=== PATIENT | female | born 1985 | race Caucasian/White ===

== ENCOUNTER 2019-08-02 16:01 | Emergency (ER) | payer OTHER, MEDICAID, SELFPAY | END 2019-08-02 17:03 | disposition left against medical advice (07) | LOC: EXPBETH 16:28 | PROVIDERS: Emergency Provider Registered Nurse | DX: Z53.21 Procedure and treatment not carried out due to patient leaving prior to being seen by health care provider (principal) | CPT/HCPCS: 99199 ==

== ENCOUNTER 2020-02-01 11:24 | Outpatient (CLI) | payer OTHER, MEDICAID, SELFPAY ==
--- NOTE | ~2020-02-01 | US_ITS ---
EXAMINATION: US OB <= 14 weeks fetus DATE: 02/01/2020 12:05 INDICATION: Threatened . TECHNIQUE: Real-time transabdominal pelvic ultrasound was performed. COMPARISON: None. FINDINGS: The uterus measures 9.6 x 8.9 x 9.4 cm. There is an intrauterine gestational sac. A yolk sac is ident ified. The crown rump length measures 3.1 cm, which correlates with an estimated gestational a ge of 10 weeks and 0 day(s) (+/-) 5 day(s). heart motion is identified measuring 171 beats per minute (bpm) by M-mode Doppler. There is a small subchorionic hematoma measuring 2.1 x 0.9 x 1.9 cm. The right ovary measures 2.5 x 2.1 x 2.2 cm. The left ovary measures 3.3 x 1.3 x 2.2 cm. There is no free fluid in the pelvis. IMPRESSION: 1. Single living intrauterine gestation with estimated date of delivery of 08/29/2020. 2. Small subchorionic hematoma. Reviewed, dictated and finalized at location A. IMPRESSION: 1. Single living intrauterine gestation with estimated date of delivery of 08/02. 2. Small subchorionic hematoma.
[2020-02-03 13:05] LABS: Progesterone 23.3 ng/mL (***)
== END 2020-02-01 11:25 | disposition home or self-care (01) ==
PROVIDERS: Visit Provider Obstetrics & Gynecology
DX: O46.90 Antepartum hemorrhage, unspecified, unspecified trimester (principal); Z3A.00 Weeks of gestation of pregnancy not specified
CPT/HCPCS: 36415; 76801; 84144; 84702; 86900; 86901

== ENCOUNTER 2020-02-07 18:18 | Emergency (ER) | payer OTHER, MEDICAID, SELFPAY ==
[2020-02-07 18:21] VITALS: BP 124/99; PULSE 98; RESP 18; TEMP 36.6; O2SAT 99
[2020-02-07 18:36] LABS: Basophils Percent Auto 0.3 % (0.2-1.2); Eosinophils Absolute Auto 0.2 K/mm3 (0-0.3); Eosinophils Percent Auto 1.5 % (0-4.4); Hematocrit 37.2 % (37.0-47.0); Hemoglobin 13.1 g/dL (12.0-15.0); Immature Granulocyte Absolute 0.03 K/mm3 (0.00-0.031); Immature Granulocyte Percent A 0.3 % (0-0.5); Lymphocytes Absolute Auto 3.17 K/mm3 (0.9-3.2); Lymphocytes Percent Auto 27.4 % (18.3-44.2); Mean Corpuscular HGB Conc 35.2 g/dl (32-36); Mean Corpuscular Hemoglobin 29.2 pg (26-34); Mean Corpuscular Volume 82.9 fl (80-100); Mean Platelet Volume 10.4 fl (7.4-10.4); Monocytes Absolute Auto 0.6 K/mm3 (0.1-0.6); Monocytes Percent Auto 5.4 % (2.6-8.5); Neutrophils Absolute Auto 7.5 K/mm3 (1.3-6.7); Neutrophils Percent Auto 65.1 % (45.5-73.1); Platelet Count Result 279 k/mm3 (150-375); Red Blood Count 4.49 M/mm3 (4.2-5.4); Red Cell Distribution Width 12.6 % (11.5-14.5); White Blood Count 11.6 K/mm3 (4.5-10.0)
[2020-02-07 18:49] LABS: Alanine Aminotransferase 22 U/L (4-35); Albumin Level 4.4 g/dL (3.5-5.1); Alkaline Phosphatase 41 U/L (38-126); Anion Gap 9 mmol/L (8-16); Aspartate Amino Transferase 23 U/L (14-36); Bilirubin,Total 0.4 mg/dL (0.2-1.3); Blood Urea Nitrogen 10 mg/dL (7-17); Calcium 9.9 mg/dL (8.4-10.2); Carbon Dioxide 23 mmol/L (22-30); Chloride 102 mmol/L (98-107); Estimated CRCL calculation 144 ml/min; Estimated Glomerular Filt Rate > 60; Glucose 102 mg/dL (65-105); Lipase 69 U/L (23-300); Potassium 3.9 mmol/L (3.4-5.0); Sodium 134 mmol/L (137-145)
[2020-02-07 19:02] LABS: Add Urine Microscopic? YES; Appearance Urine Clear (Clear); Bacteria Urine Trace /hpf; Bilirubin Urine Negative (Negative); Blood Urine Negative (Negative); Color Urine Yellow (Yellow); Glucose Urine UA Negative (Negative); Ketones Urine Negative (Negative); Leukocyte Esterase Ur Trace LEU/UL (Negative); Mucus Urine Rare /lpf; Nitrate Urine Negative (Negative); Protein Urine Negative (Negative); RBC Urine 0-2 /hpf (0-2); Specific Grav Ur 1.019 (1.001-1.035); Squamous Epithelial Cell Urine Occasional /hpf (Few); Urobilinogen Urine Negative mg/dL (<2.0); WBC Urine 0-3 /hpf
--- NOTE | 2020-02-07 19:41 | ED.ABDPAIN ---
HPI - Abdominal Pain General Chief Complaint: Abdominal Pain Stated Complaint: 11 weeks /cramping Time Seen by Provider: 02/07/20 19:23 History of Present Illness HPI narrative: Patient is a 34-year-old female who presents ER with lower abdominal cramping. Patient is 12 weeks . She has a positive IUP with small subchorionic hematoma diagnosed on 02/01/2020. Patient had increased cramping today associated with vomiting so her OB told her to come be evaluated. She is having no vaginal bleeding or dysuria or urinary frequency. She does not feel nauseous outside when she has a cramping pain. Related Data Home Medications Medication Instructions Recorded Confirmed ondansetron HCl 4 mg tablet 4 mg PO Q8H 02/05/20 02/07/20 PNV cmb#95-ferrous fumarate-FA 1 tablet PO 02/07/20 [] Allergies Allergy/AdvReac Type Severity Reaction Status Date / Time No Known Allergies Allergy Verified 02/07/20 19:19 Review of Systems Review of Systems: All systems reviewed & are unremarkable except as noted in HPI and below Gastrointestinal: Gastrointestinal: Reports abdominal pain, Reports nausea and Reports vomiting Genitourinary: Genitourinary: Denies abnormal vaginal bleeding, Denies nocturia, Denies dysuria and Denies vaginal discharge PMFSH Social History Social History Smoking status: Never smoker Alcohol intake: never Substance use: never Gender identity (if verbalized by the patient): Female Exam Narrative: Exam Narrative: GENERAL: Well-appearing, well-nourished, and in no acute distress. HEAD: Normocephalic, atraumatic. CHEST: Clear to auscultation. No respiratory distress. HEART: Regular rate and rhythm. Normal peripheral pulses. ABDOMEN: Soft, nontender, nondistended. EXTREMITIES: Normal range of motion. No edema. NEURO: Alert and oriented x3. PSYCH: Normal mood and affect. Course Course Emergency Course: Bedside ultrasound shows IUP with positive movement and positive heart tones. Patient reassured by this. Gave education bleeding precautions. Encouraged hydration at home. No evidence of UTI. Patient reports she has follow-up with her OB in 2 to 3 days. Vital Signs Vital signs: Vital Signs Temperature 98 F 02/07/20 18:21 Pulse Rate 98 02/07/20 18:21 Respiratory Rate 18 02/07/20 18:21 Blood Pressure 124/99 H 02/07/20 18:21 Pulse Oximetry 99 02/07/20 18:21 Temperature 98 F 02/07/20 18:21 Pulse Rate 98 02/07/20 18:21 Respiratory Rate 18 02/07/20 18:21 Blood Pressure 124/99 H 02/07/20 18:21 Pulse Oximetry 99 02/07/20 18:21 MDM - Abdominal Pain Lab Data Result diagrams: 02/07/20 18:26 02/07/20 18:26 Labs: Lab Results 02/07/20 02/07/20 02/07/20 Range/Units 18:26 18:26 18:52 WBC 11.6 H (4.5-10.0) K/mm3 RBC 4.49 (4.2-5.4) M/mm3 Hgb 13.1 (12.0-15.0) g/dL Hct 37.2 (37.0-47.0) % MCV 82.9 (80-100) fl MCH 29.2 (26-34) pg MCHC 35.2 (32-36) g/dl RDW 12.6 (11.5-14.5) % Plt Count 279 (150-375) k/mm3 MPV 10.4 (7.4-10.4) fl Immature Gran % (Auto) 0.3 (0-0.5) % Neut % (Auto) 65.1 (45.5-73.1) % Lymph % (Auto) 27.4 (18.3-44.2) % [place] % (Auto) 5.4 (2.6-8.5) % Eos % (Auto) 1.5 (0-4.4) % Baso % (Auto) 0.3 (0.2-1.2) % Lymph # (Auto) 3.17 (0.9-3.2) K/mm3 [place] # (Auto) 0.6 (0.1-0.6) K/mm3 Eos # (Auto) 0.2 (0-0.3) K/mm3 Baso # (Auto) 0.0 (0.0-0.1) K/mm3 Abs Immat Gran (auto) 0.03 (0.00-0.031) K/mm3 Absolute Neuts (auto) 7.5 H (1.3-6.7) K/mm3 Absolute Nucleated RBC 0.0 (0.0-0.012) K/mm3 Nucleated RBC % 0.0 (0.0-0.2) % Sodium 134 L (137-145) mmol/L Potassium 3.9 (3.4-5.0) mmol/L Chloride 102 (98-107) mmol/L Carbon Dioxide 23 (22-30) mmol/L Anion Gap 9 (8-16) mmol/L BUN 10 (7-17) mg/dL Creatinine 0.50
[2020-02-07 19:51] VITALS: BP 132/78; PULSE 70; RESP 18; O2SAT 99
== END 2020-02-07 20:08 | disposition home or self-care (01) ==
LOC: ANHED 19:57
PROVIDERS: Family Medicine; Emergency Provider Emergency Medicine; PCP Obstetrics & Gynecology
DX: O26.891 Other specified pregnancy related conditions, first trimester (principal); R10.30 Lower abdominal pain, unspecified; Z3A.12 12 weeks gestation of pregnancy
CPT/HCPCS: 36415; 80053; 81001; 81025; 83690; 85025; 99283

== ENCOUNTER 2020-02-26 12:52 | Outpatient (CLI) | payer OTHER, MEDICAID, SELFPAY ==
[2020-02-26 13:39] LABS: Basophils Percent Auto 0.2 % (0.2-1.2); Eosinophils Absolute Auto 0.1 K/mm3 (0-0.3); Eosinophils Percent Auto 1.4 % (0-4.4); Hematocrit 36.2 % (37.0-47.0); Hemoglobin 12.4 g/dL (12.0-15.0); Immature Granulocyte Absolute 0.02 K/mm3 (0.00-0.031); Immature Granulocyte Percent A 0.2 % (0-0.5); Lymphocytes Absolute Auto 2.44 K/mm3 (0.9-3.2); Lymphocytes Percent Auto 26.5 % (18.3-44.2); Mean Corpuscular HGB Conc 34.3 g/dl (32-36); Mean Corpuscular Hemoglobin 28.6 pg (26-34); Mean Corpuscular Volume 83.4 fl (80-100); Mean Platelet Volume 10.2 fl (7.4-10.4); Monocytes Absolute Auto 0.5 K/mm3 (0.1-0.6); Monocytes Percent Auto 5.1 % (2.6-8.5); Neutrophils Absolute Auto 6.1 K/mm3 (1.3-6.7); Neutrophils Percent Auto 66.6 % (45.5-73.1); Platelet Count Result 233 k/mm3 (150-375); Red Blood Count 4.34 M/mm3 (4.2-5.4); Red Cell Distribution Width 12.9 % (11.5-14.5); White Blood Count 9.2 K/mm3 (4.5-10.0)
[2020-02-26 14:31] LABS: HIV 1/2 Ab P24 Ag Result Negative (Negative)
[2020-02-26 14:49] LABS: Hepatitis C Virus Antibody Negative (Negative); Rubella IgG Antibody 5.6 IU/ML
[2020-02-29 11:44] LABS: Rapid Plasma Reagin Non-Reactive (NonReactive)
[2020-03-01 18:11] LABS: Hepatitis Be Antigen Nonreactive
== END 2020-02-26 12:53 | disposition home or self-care (01) ==
PROVIDERS: PCP Obstetrics & Gynecology; Visit Provider Obstetrics & Gynecology
DX: N91.2 Amenorrhea, unspecified (principal)
CPT/HCPCS: 36415; 85025; 86592; 86703; 86762; 86803; 86850; 86900; 86901; 87350; G0432

== ENCOUNTER 2020-03-25 15:18 | Outpatient (CLI) | payer OTHER, MEDICAID, SELFPAY ==
--- NOTE | ~2020-03-25 | US_ITS ---
EXAMINATION: US OB /maternal detail EXAM DATE: 03/25/2020 16:10 INDICATION: Z36.2 Encounter for other screening follow-up. 2nd trimester. TECHNIQUE: Pelvic obstetrical transabdominal sonogram was performed by a technologist. There are mu ltiple grayscale and Doppler images available for interpretation. Comparison is made to prior examina tion from 02/01/2020. FINDINGS: There is a single fetus identified in vertex presentation with a heart rate of 154 beats pe r minute. The placenta is located in the anterior position. There is no sonographic evidence of retr oplacental hemorrhage identified. Placental margin to internal cervical os distance is 3.6 cm. BIOMETRIC DATA: Biparietal diameter (BPD): 4.0cm ----------------> 18 weeks 2 days. Head circumference (HC): 15.0 cm ----------------> 18 weeks 0 days. Abdominal circumference (AC): 12.4 cm ----------> 18 weeks 0 days. Femur length (FL): 1.3 cm --------------------------> 14 weeks 0 days. These measurements are discordant, the FL/HC ratio is low at 9.0 with 5th -- 95th percentile range is 14.8-17.7. This is result of short femur length measurement obtained. HC/AC ratio is 1.21 (The 5th -- 95th percentile range is 1.07-1.29. Estimated weight is 151 g +/- 23 g. This is the less than 3rd percentile when the currently re ported clinical gestation age 18 weeks 1 day, clinical estimated date of delivery ([facility]) 08/25/2020 is used. estimated gestational age based on measurements from this exam is 17 weeks 1 day, wit h an estimated date of delivery ([facility]) 09/01. ANATOMIC SURVEY: The following anatomy is identified and is sonographically normal in appearance: Cerebral ventricles Cerebellum Cisterna magna CTL-spine Four-chamber heart Diaphragm Stomach Kidneys Bladder Three-vessel cord Cord insertion The nuchal fold was imaged but measurement not obtained. It appears well within normal thickness. IMPRESSION: 1. Single fetus in vertex presentation with heart rate 154 beats per minute. 2. Estimated weight of 151 grams, less than 3rd percentile using the currently reported clinic al gestation age of 18 weeks 1 day, [facility]) 08/26/2019. 3. Discordant low femur length measurement. 4. Normal anatomic survey. Reviewed, dictated and finalized at location A. IMPRESSION: 1. Single fetus in vertex presentation with heart rate 154 beats per minute. 2. Estimated weight of 151 grams, less than 3rd percentile using the cur rently reported clinical gestation age of 18 weeks 1 day, [facility]) 08/26/2019. 3. Discordant low femur length measurement. 4. Normal anatomic survey.
== END 2020-03-25 15:19 | disposition home or self-care (01) ==
PROVIDERS: Visit Provider Obstetrics & Gynecology
DX: Z36.2 Encounter for other antenatal screening follow-up (principal)
CPT/HCPCS: 76805

== ENCOUNTER 2020-03-31 13:50 | Observation (INO) | payer OTHER, MEDICAID, SELFPAY ==
--- NOTE | 2020-03-31 14:12 | OBADM ---
This patient, Angelina Mckeon, admitted to the OB room 115 for observation for dizziness. Patient/family oriented to hospital policies and general routines including ID bracelet, bed and alarms, visiting hours, pain management, procedures, bathroom and other care routines, personal items, smoking policy, room service/diet, and visiting hours. Patient/Family are encouraged to report perceived risks to care and to ask questions if they do not understand what they are told or what they should do.
[2020-03-31 14:13] VITALS: RESP 16; TEMP 36.6; BMI 27.9
--- NOTE | 2020-03-31 14:20 | PC.NURSE ---
Demonstrated to pt how to change positions if she should become dizzy again while sitting. Discussed having pt move to floor and lay on side or to have someone assist her to laying down rather than just getting up on her own and possibly passing out. Pt verbalizes understanding.
--- NOTE | 2020-03-31 14:48 | PC.NURSE ---
Dr. Redmond informed of pt's episode of dizziness around 1000 while sitting at work this morning. Pt denies any chest discomfort or increase in HR during episode. When pt arrived here, she states her dizziness was 95% gone. Pt states she did have 1 brief episode of dizziness while here that went away shortly after she turned on her side. FHT's 148 per doppler, P 89, BP's 100/62, 109/59, 105/58, and 107/58. Pt had breakfast at 0730 this morning and ate lunch on the way here. Pt has had 44 oz of water so far today. OK to discharge pt to home. Encourage pt to continue drinking as she has been. Encourage her to shift and change positions more frequently. Pt verbalizes understanding of these instructions.
--- NOTE | 2020-06-30 09:16 | PM.OBTRLD ---
OB - Triage/Final Diagnosis Visit Information Comments/Additional reasons for admission: I have assessed the risk for this patient, Angelina Mckeon, and determined that she would benefit from observation care. Final Diagnosis (1) False labor: Code(s): O47.9 - False labor, unspecified Status: Acute
== END 2020-03-31 14:55 ==
LOC: ANHOBOP 06-30 06:23 → ANHLDR 06-30 08:55
PROVIDERS: Admitting Provider Obstetrics & Gynecology; Visit Provider Obstetrics & Gynecology
DX: O47.02 False labor before 37 completed weeks of gestation, second trimester (principal); Z3A.19 19 weeks gestation of pregnancy
CPT/HCPCS: G0378; G0379

== ENCOUNTER 2020-05-12 19:30 | Observation (INO) | payer MEDICAID, SELFPAY ==
[2020-05-12 19:55] VITALS: BP 103/73; PULSE 84
--- NOTE | 2020-05-12 20:03 | OBADM ---
This patient, Angelina Mckeon, admitted to the OB room OB Post 117 for observation. Patient/family oriented to hospital policies and general routines including ID bracelet, bed and alarms, visiting hours, pain management, procedures, bathroom and other care routines, personal items, smoking policy, room service/diet, and visiting hours. Patient/Family are encouraged to report perceived risks to care and to ask questions if they do not understand what they are told or what they should do.
[2020-05-12 20:47] LABS: Add Urine Microscopic? YES; Appearance Urine Clear (Clear); Bacteria Urine Trace /hpf; Bilirubin Urine Negative (Negative); Blood Urine Negative (Negative); Color Urine Yellow (Yellow); Glucose Urine UA Negative (Negative); Ketones Urine Negative (Negative); Leukocyte Esterase Ur Negative LEU/UL (Negative); Mucus Urine Few /lpf; Nitrate Urine Negative (Negative); Protein Urine 1+ mg/dL (Negative); RBC Urine 0-2 /hpf (0-2); Specific Grav Ur 1.025 (1.001-1.035); Squamous Epithelial Cell Urine Occasional /hpf (Few); Urobilinogen Urine Negative mg/dL (<2.0); WBC Urine 0-3 /hpf
--- NOTE | 2020-06-13 09:44 | PM.OBTRLD ---
OB - Triage/Final Diagnosis Evaluation Laboratory results: Laboratory Tests 05/12/20 20:38 Urine Color Yellow Urine Appearance Clear Urine pH 6.0 Ur Specific [place] 1.025 Urine Protein 1+ H Urine Glucose (UA) Negative Urine Ketones Negative Ur Blood (Man) Negative Urine Nitrate Negative Urine Bilirubin Negative Urine Urobilinogen Negative Leukocyte Esterase Rfl Negative Urine RBC 0-2 Urine WBC 0-3 Ur Squamous Epith Cells Occasional Urine Bacteria Trace Urine Mucus Few H Final Diagnosis (1) False labor: Code(s): O47.9 - False labor, unspecified Status: Acute
--- NOTE | 2020-08-10 11:50 | PM.OBTRLD ---
OB - Triage/Final Diagnosis Visit Information Comments/Additional reasons for admission: I have assessed the risk for this patient, Angelina Mckeon, and determined that she would benefit from observation care. Evaluation Laboratory results: Laboratory Tests 05/12/20 20:38 Urine Color Yellow Urine Appearance Clear Urine pH 6.0 Ur Specific [place] 1.025 Urine Protein 1+ H Urine Glucose (UA) Negative Urine Ketones Negative Ur Blood (Man) Negative Urine Nitrate Negative Urine Bilirubin Negative Urine Urobilinogen Negative Leukocyte Esterase Rfl Negative Urine RBC 0-2 Urine WBC 0-3 Ur Squamous Epith Cells Occasional Urine Bacteria Trace Urine Mucus Few H Final Diagnosis (1) False labor: Code(s): O47.9 - False labor, unspecified Status: Acute
== END 2020-05-12 21:10 | disposition home or self-care (01) ==
PROVIDERS: Admitting Provider Obstetrics & Gynecology; Visit Provider Obstetrics & Gynecology
DX: O47.02 False labor before 37 completed weeks of gestation, second trimester (principal); Z3A.25 25 weeks gestation of pregnancy
CPT/HCPCS: 81001; G0378; G0379

== ENCOUNTER 2020-07-21 11:52 | Observation (INO) | payer OTHER, SELFPAY ==
[2020-07-21] VITALS (7 sets, daily range): BP systolic 83–110; BP diastolic 57–75; PULSE 84–114; BMI 28.8
[2020-07-21 13:08] LABS: Add Urine Microscopic? YES; Appearance Urine Clear (Clear); Bilirubin Urine Negative (Negative); Blood Urine Negative (Negative); Color Urine Yellow (Yellow); Glucose Urine UA Negative (Negative); Ketones Urine 1+ mg/dL (Negative); Leukocyte Esterase Ur Negative LEU/UL (Negative); Mucus Urine Rare /lpf; Nitrate Urine Negative (Negative); Protein Urine Negative (Negative); RBC Urine 0-2 /hpf (0-2); Squamous Epithelial Cell Urine Rare /hpf (Few); Urobilinogen Urine Negative mg/dL (<2.0); WBC Urine 0-3 /hpf
--- NOTE | 2020-08-05 16:22 | PM.OBTRLD ---
OB - Triage/Final Diagnosis Visit Information Comments/Additional reasons for admission: I have assessed the risk for this patient, Angelina Mckeon, and determined that she would benefit from observation care. Evaluation Laboratory results: Laboratory Tests 07/21/20 13:00 Urine Color Yellow Urine Appearance Clear Urine pH 5.0 Ur Specific [place] 1.020 Urine Protein Negative Urine Glucose (UA) Negative Urine Ketones 1+ H Ur Blood (Man) Negative Urine Nitrate Negative Urine Bilirubin Negative Urine Urobilinogen Negative Leukocyte Esterase Rfl Negative Urine RBC 0-2 Urine WBC 0-3 Ur Squamous Epith Cells Rare Urine Mucus Rare Final Diagnosis (1) False labor: Code(s): O47.9 - False labor, unspecified Status: Acute
== END 2020-07-21 15:40 | disposition home or self-care (01) ==
PROVIDERS: Admitting Provider Student in an Organized Health Care Education/Training Program; Visit Provider Student in an Organized Health Care Education/Training Program
DX: O47.03 False labor before 37 completed weeks of gestation, third trimester (principal); Z3A.35 35 weeks gestation of pregnancy
CPT/HCPCS: 81001; G0378; G0379

== ENCOUNTER 2020-07-27 17:59 | Observation (INO) | payer OTHER, SELFPAY ==
[2020-07-27 18:30] VITALS: BMI 28.8
[2020-07-27 18:35] VITALS: BP 115/73; PULSE 85
[2020-07-27 18:46] VITALS: BP 111/74; PULSE 98
[2020-07-27 19:17] VITALS: TEMP 37
--- NOTE | 2020-08-09 08:52 | PM.OBTRLD ---
OB - Triage/Final Diagnosis Visit Information Comments/Additional reasons for admission: I have assessed the risk for this patient, Angelina Mckeon, and determined that she would benefit from observation care. Final Diagnosis (1) contractions: Code(s): O47.9 - False labor, unspecified Status: Acute
== END 2020-07-27 19:41 | disposition home or self-care (01) ==
PROVIDERS: Admitting Provider Obstetrics & Gynecology; Visit Provider Obstetrics & Gynecology
DX: O47.9 False labor, unspecified (principal); Z3A.00 Weeks of gestation of pregnancy not specified
CPT/HCPCS: G0378; G0379

== ENCOUNTER 2020-08-06 20:59 | Observation (INO) | payer OTHER, SELFPAY ==
[2020-08-06 21:45] VITALS: BP 99/71; PULSE 75
[2020-08-06 22:00] VITALS: BP 106/70; PULSE 86
[2020-08-06 22:15] VITALS: BP 114/66; PULSE 72
[2020-08-06 22:30] VITALS: BP 107/71; PULSE 87
--- NOTE | 2020-08-06 22:51 | LDADM ---
This patient, Angelina Mckeon, was admitted to Labor/Delivery/Recovery 105 on 08/06/20 at 20:59. Plans for labor, pain management and were discussed with patient. Patient/family oriented to hospital policies and general routines including ID bracelet, bed and alarms, visiting hours, pain management, procedures, bathroom and other care routines, personal items, smoking policy, room service/diet and guest tray routines, infant security routines, and visiting hours. Patient/Family are encouraged to report perceived risks to care and to ask questions if they do not understand what they are told or what they should do. See OBIX for further documentation.
== END 2020-08-06 23:05 | disposition home or self-care (01) ==
PROVIDERS: Admitting Provider Obstetrics & Gynecology; Visit Provider Obstetrics & Gynecology
DX: O47.1 False labor at or after 37 completed weeks of gestation (principal); Z3A.37 37 weeks gestation of pregnancy
CPT/HCPCS: G0378; G0379

== ENCOUNTER 2020-08-17 19:28 | Observation (INO) | payer OTHER, SELFPAY ==
[2020-08-17 19:35] VITALS: BMI 29.7
[2020-08-17 19:41] VITALS: TEMP 36.8
--- NOTE | 2020-08-17 21:10 | PC.NURSE ---
Pt here for contractions. SEE OBIX. Occasional contractions since arrival. Declines second SVE stating she is sure her cervix did not change.
--- NOTE | 2020-08-18 00:02 | OBADM ---
This patient, Angelina Mckeon, admitted to the OB room Labor/Delivery/Recovery 105 for observation. Patient/family oriented to hospital policies and general routines including ID bracelet, bed and alarms, visiting hours, pain management, procedures, bathroom and other care routines, personal items, smoking policy, room service/diet, and visiting hours. Patient/Family are encouraged to report perceived risks to care and to ask questions if they do not understand what they are told or what they should do.
== END 2020-08-17 21:45 | disposition home or self-care (01) ==
PROVIDERS: Admitting Provider Obstetrics & Gynecology; Visit Provider Obstetrics & Gynecology
DX: O47.1 False labor at or after 37 completed weeks of gestation (principal); Z3A.39 39 weeks gestation of pregnancy
CPT/HCPCS: G0378; G0379

== ENCOUNTER 2020-08-19 05:07 | Inpatient (IN) | payer OTHER, SELFPAY ==
[2020-08-19] VITALS (17 sets, daily range): BP systolic 102–130; BP diastolic 63–80; PULSE 56–84; RESP 16–18; TEMP 36.8; O2SAT 96–98; BMI 29.9
--- NOTE | 2020-08-19 05:10 | LDADM ---
This patient, Angelina Mckeon, was admitted to Labor/Delivery/Recovery 104 on 08/19/20 at 05:07. Plans for labor, pain management and were discussed with patient. Patient/family oriented to hospital policies and general routines including ID bracelet, bed and alarms, visiting hours, pain management, procedures, bathroom and other care routines, personal items, smoking policy, room service/diet and guest tray routines, infant security routines, and visiting hours. Patient/Family are encouraged to report perceived risks to care and to ask questions if they do not understand what they are told or what they should do. See OBIX for further documentation. PT ARRIVED IN [facility] WITH HEAD civil engineering project manager with Immanuel Trejo RN.
[2020-08-19] MEDS: OXYTOCIN 10 UNITS/ML VIAL IM (05:25)
[2020-08-19] MEDS: fentaNYL CITRATE INJ (*CRX) 100 MCG/2 ML VIAL 50 MCG IV PUSH (05:49)
--- NOTE | 2020-08-19 06:29 | PM.IMHP ---
H&P: HPI History of Present Illness Date/Time: 08/19/20 06:29 Patient is a 35y/o at 39 1/7 by LMP 11/19/19 with an EDC 08/25/20 consistent with a 10 week ultrasound. She presented to L and D and delivered by RN immediately when getting in the room. She states she was ollie regularly since 6pm. She does not remember leaking of fluid. PNC significant for HSV and + GBS. She was scheduled for induction this am. She has been on HSV suppression. Denies symptoms or lesions. Chief Complaint: labor Review of Systems Review of Systems: All systems reviewed & are unremarkable except as noted in HPI and below Constitutional: Constitutional: Reports no additional constitutional complaints and Denies headache(s) Eyes: Eyes: Denies spots in vision ENT: Reports system reviewed and no additional complaints, except as documented and Denies headache(s) Cardiovascular: Cardiovascular: Denies chest pain and Denies dyspnea Respiratory: Respiratory: Denies dyspnea Gastrointestinal: Gastrointestinal: Reports no additional gastrointestinal complaints Genitourinary: Genitourinary: Reports amenorrhea Musculoskeletal: Musculoskeletal: Reports no additional musculoskeletal complaints Integumentary/Breasts: Skin/Breast: Denies breast mass and Denies rash Neurologic: Denies headache(s) Psychiatric: Psychiatric: Reports no additional psychiatric complaints PMFSH Past Medical History Medical History Abnormal Pap smear of cervix 01/2020, High Risk HPV HSV (herpes simplex virus) infection Migraines Miscarriage Psoriasis Vaginal delivery 09/05/07 Full term female 7lbs 5oz Surgical History Surgical History H/O dilation and curettage Family History Family History Father Diabetes mellitus Mother Hypertension Grandparent Diabetes mellitus Social History Social History Smoking status: Never smoker Alcohol intake: never Substance use: never Gender identity (if verbalized by the patient): Female Spiritual care concerns: No Meds Home Medications and Allergies Home Medications Medication Instructions Recorded Confirmed Type ondansetron HCl 4 mg tablet 4 mg PO Q8H PRN 02/05/20 07/28/20 History acetaminophen [Tylenol Extra 500 mg PO Q6H PRN 05/12/20 07/28/20 History Strength] cetirizine [Zyrtec] 10 mg PO DAILY PRN 05/12/20 07/28/20 History diphenhydramine HCl [Benadryl 25 mg PO HS PRN 05/12/20 07/28/20 History Allergy] vit no.95-ferrous 1 tablet PO DAILY #30 tablet 07/04/20 07/28/20 Rx fumarate 28 mg-folic acid 800 mcg tablet valacyclovir 1 gram tablet 1,000 mg PO DAILY #35 tablet 07/19/20 07/28/20 Rx ferrous sulfate [Iron (ferrous 325 mg PO DAILY 07/28/20 07/28/20 History sulfate)] Allergies Allergy/AdvReac Type Severity Reaction Status Date / Time No Known Allergies Allergy Verified 08/15/20 09:20 Vital Signs Vital Signs - 24 hr 08/19/20 05:20 08/19/20 05:30 08/19/20 05:45 Pulse Rate 64 81 62 Blood Pressure 117/78 118/69 124/74 08/19/20 06:00 08/19/20 06:15 Pulse Rate 56 L 57 L Blood Pressure 117/67 124/78 Exam Const: General: no acute distress Eyes: General: appearance normal, both eyes and all related structures Resp: Effort & Inspection: normal respiratory effort Cardio: Rate: regular rate GI: Other: Gravid : External Female Exam: normal external appearance and other (no lesion) Speculum Exam - Cervix: normal appearance of the cervix Skin: General skin exam: no rashes or lesions noted Neuro: Cognition (Neuro): normal cognition Extrem: General: normal to inspection Psych: Mental Status: mental status grossly normal Assessment and Plan Assessment and plan (1) Active labor: Status: Acute Asse
[2020-08-19 06:33] LABS: Basophils Percent Auto 0.3 % (0.2-1.2); Eosinophils Absolute Auto 0.1 K/mm3 (0-0.3); Eosinophils Percent Auto 0.5 % (0-4.4); Hematocrit 37.2 % (37.0-47.0); Hemoglobin 12.4 g/dL (12.0-15.0); Immature Granulocyte Absolute 0.13 K/mm3 (0.00-0.031); Immature Granulocyte Percent A 1.1 % (0-0.5); Lymphocytes Absolute Auto 1.03 K/mm3 (0.9-3.2); Mean Corpuscular HGB Conc 33.3 g/dl (32-36); Mean Corpuscular Hemoglobin 29.5 pg (26-34); Mean Corpuscular Volume 88.6 fl (80-100); Mean Platelet Volume 12.2 fl (7.4-10.4); Monocytes Absolute Auto 0.4 K/mm3 (0.1-0.6); Monocytes Percent Auto 3.3 % (2.6-8.5); Neutrophils Absolute Auto 9.8 K/mm3 (1.3-6.7); Neutrophils Percent Auto 85.8 % (45.5-73.1); Platelet Count Result 115 k/mm3 (150-375); Red Cell Distribution Width 15.1 % (11.5-14.5); White Blood Count 11.4 K/mm3 (4.5-10.0)
--- NOTE | 2020-08-19 06:52 | PM.OBPRVD ---
OB - Delivery Note Procedure Delivery date: 08/19/20 Procedure: Spontaneous vaginal delivery Intrapartal events: Precipitous Labor < 3 hours Delivery monitor: none Route of delivery: Laceration Description: Perineal - 2nd Degree Delivery repair: vicryl (3.0 vicryl) Specimen: Yes (Placenta and cord) Quantitative Blood Loss (ml): 525 Anesthesia type: Local Disposition: floor Narrative: Patient presented to Labor and delivery at 0508 and and when she got in the bed the head was . Unknown time of rupture of membranes. She was delivered by the nurse 0510. The placenta delivered spontaneously and intact. She received IM Pitocin. IV was started. She was examined. She sustained a second degree laceration. She was given Fentanyl for pain control and lidocaine locally. The second degree midline laceration repaired with 3.0 vicryl. EBL 525. [place] Baby Date of : 08/19/20 Time of : 05:10 Weeks of gestation at delivery: 39 gender: Female Weight (pounds): 8 Weight (ounces): 7 presentation: vertex Placenta delivery description: Spontaneous
--- NOTE | 2020-08-19 07:27 | PC.NURSE ---
PT ARRIVED IN [facility] WITH HEAD ON REMOVAL OF PANTS. [employer] EQUIPMENT OPERATOR (WITH Immanuel SERNA RN) VIGOROUS FEMALE WITH STRON CRY.
[2020-08-19] MEDS: IBUPROFEN 600 MG TABLET PO ×3 (07:53→21:07)
[2020-08-19] MEDS: WITCH HAZEL 40 PADS 1 PAD TOPICAL (07:55)
[2020-08-19] MEDS: BENZOCAINE 20% AER SPR (*SP) 56 GM CAN 1 SPRAY TOPICAL (07:56)
--- NOTE | 2020-08-19 08:33 | OBPPTRN ---
Patient transferred to post room # 281 via wheelchair. Support person present. Oriented to unit, room, information board, rooming in, admission packet and security measures. Patient verbalizes understanding.
[2020-08-19 09:32] LABS: Rapid Plasma Reagin Non-Reactive (NonReactive)
--- NOTE | 2020-08-19 13:15 | PC.NURSE ---
Consult with pt., mother reports she breastfed first child, now 13, and plans to breast and bottle feed this child. Mother states she has bottle fed due to tiredness and will begin to breastfeed later when she is more rested. Reviewed feeding cues, frequencies, duration of feedings, feeding elimination flow sheet, and signs of adequate intake. Demonstrated stimulation techniques to wake infant for feeding. Nipple care reviewed. Discussed transition to breast milk by day 3-4, signs of adequate intake, and engorgement/relief. Reviewed regular medications mother is taking. Information provided per Earlene. Reviewed community resources on the [employer] website and in the Mom/Baby guide. Information on outpatient services provided. Mother has no further questions at this time. Instructed mother to call out for RN assistance if she is unable to latch infant for feeding or she has discomfort with nursing. Instructed feeding should be initiated three hours from start of last feeding or if feeding cues are noted before. Mother voiced understanding of information shared.
[2020-08-19] MEDS: ACETAMINOPHEN 325 MG TABLET 650 MG PO ×2 (15:06→21:07)
[2020-08-19] MEDS: DOCUSATE SODIUM 100 MG CAPSULE PO (15:06)
[2020-08-20 05:48] LABS: Hematocrit 29.6 % (37.0-47.0)
[2020-08-20] MEDS: IBUPROFEN 600 MG TABLET PO ×2 (07:02→17:52)
[2020-08-20] MEDS: DOCUSATE SODIUM 100 MG CAPSULE PO (07:02)
[2020-08-20] MEDS: MULTIVIT/MIN/PREN/FOL AC/IRON TABLET 1 TAB PO (07:02)
[2020-08-20] MEDS: TETANUS,DIPHTHERIA,AC PERTUSSIS ADULT (0.5 ML) BOOSTRIX IM (07:03)
--- NOTE | 2020-08-20 08:22 | PM.OBPNVD ---
OB - PN: Subj Subjective Date/time seen: 08/20/20 08:22 She is bottle feeding and planning on breast feeding later today. Patient comments: pain well controlled, tolerating diet and other (Decreasing lochia.) [place] baby status: doing well and nursing well OB - PN: Obj Data Labs CBC & Chem 7: 08/20/20 05:19 Labs: Laboratory Results - last 24 hr 08/19/20 08/19/20 08/20/20 06:02 06:02 05:19 Hgb 10.0 L Hct 29.6 L RPR Non-reactive Blood Type A Positive Antibody Screen Negative OB - PN A/P Plan day: 1 Plan: routine care Comments: Patient doing well. Routine care. Time Spent With Patient Time: Total time spent is greater than 50% in coordination of care (as documented) at patient's floor/unit and/or counseling patient: Exam Const: General: comfortable Eyes: General: appearance normal, both eyes and all related structures Resp: Effort & Inspection: normal respiratory effort GI: Inspection: normal to inspection Extrem: General: normal to inspection Other: nontender Psych: Affect: normal affect Other: Abd: fundus firm below umbilicus, nontender Perineum: healing Ext: nontender
[2020-08-20 10:30] VITALS: BP 126/88; PULSE 52; PULSE 67; RESP 16; RESP 18; TEMP 36.5; O2SAT 100; O2SAT 98
[2020-08-20] MEDS: ACETAMINOPHEN 325 MG TABLET 650 MG PO (12:22)
[2020-08-20 19:07] VITALS: BP 118/83; PULSE 107; RESP 16; TEMP 37.1
[2020-08-21] MEDS: ACETAMINOPHEN 325 MG TABLET 650 MG PO (05:10)
[2020-08-21] MEDS: IBUPROFEN 600 MG TABLET PO (07:49)
[2020-08-21] MEDS: MULTIVIT/MIN/PREN/FOL AC/IRON TABLET 1 TAB PO (07:49)
[2020-08-21] MEDS: BENZOCAINE 20% AER SPR (*SP) 56 GM CAN 1 SPRAY TOPICAL (07:50)
[2020-08-21] MEDS: WITCH HAZEL 40 PADS 1 PAD TOPICAL (07:50)
[2020-08-21 08:00] VITALS: BP 114/77; PULSE 107; PULSE 92; RESP 16; TEMP 37.1; O2SAT 97
--- NOTE | 2020-08-21 09:45 | PM.OBPNVD ---
OB - PN: Subj Subjective Date/time seen: 08/21/20 09:45 Patient comments: pain well controlled, tolerating diet and other (Decreasing lochia.) baby status: doing well and nursing well OB - PN: Obj Data Labs CBC & Chem 7: 08/20/20 05:19 OB - PN A/P Plan day: 1 Plan: routine care Comments: Patient doing well. Plan discharge home today. Discharge instructions discussed. Time Spent With Patient Time: Total time spent is greater than 50% in coordination of care (as documented) at patient's floor/unit and/or counseling patient: Exam Psych: Affect: normal affect Other: Abd: fundus firm below umbilicus, nontender Perineum: healing Ext: nontender
--- NOTE | 2020-08-21 09:46 | PM.OBDSVD ---
DS: Admitting Diagnosis Admitting Diagnosis Admitting Diagnosis: Labor DS: Discharge Diagnosis Discharge Diagnosis (1) Delivery normal: Code(s): O80 - Encounter for full-term uncomplicated delivery Status: Acute OB - DS: Summary OB Procedures : Ultrasound OB Procedures Intrapartum: Spontaneous Vag Delivery OB Procedures: : None Peripartum Data Procedures: Procedures Operation Date: 08/19/20 15:00 <No data on this case meets the specified criteria> Time Spent with Patient Time attestation: Total time spent providing and/or coordinating discharge services: Exam Psych: Affect: normal affect Other: Abd: fundus firm below umbilicus, nontender Perineum: healing Ext: nontender DS: Data Data Completed and Pending Pending studies at discharge: Pending at discharge 08/19/20 05:30 Surgical [PTH] Routine Discharge Plan Discharge Attending physician on discharge: Puneet Dee Discharging Clinician: Puneet Dee Anticipated Discharge Date/Time: 08/21/20 09:43 Patient Disposition: Home, Self-Care Activity: may shower, as tolerated and pelvic rest Diet: regular Discharge Instructions: Education: Mom and Baby Guide Given to: Mother Follow-Up: Call your delivering provider's office for an appointment to be seen in: 4 Weeks BREAST CARE: * Wear a snug supportive bra. * For engorgement discomfort: Breast Feeding: * Apply warm moist washcloths * Express milk as needed to relieve engorgement * Wear loose clothing Bottle Feeding: * May apply ice packs * For sore nipples: * Identify correct latch-on * Apply warm moist washcloths before and after nursing * Air dry nipples after nursing * May apply Lansinoh cream to nipples PERINEAL CARE: * Until bleeding stops, use your john bottle after urinating * Change your pad frequently throughout the day * You may take sitz baths several times a day (fill your bathtub with warm water and soak for 20 minutes.) Do NOT bathe in the water * No tub baths until seen by your physician - You may shower ACTIVITY: * Rest as much as possible. * Do not exercise or lift anything heavier than your baby (such as laundry or other children.) * Avoid stairs or driving as much as possible. * Do not put anything into the vagina. No douching, tampons, or sexual activity until seen by physician. NOTIFY PHYSICIAN IF YOU HAVE ANY QUESTIONS OR IF ANY OF THE FOLLOWING SYMPTOMS OCCUR: * If your vaginal area becomes red, swollen, or more painful than what you have experienced in the hospital. * If your vaginal bleeding becomes foul smelling. * If your vaginal bleeding becomes more heavy than a period or if your bleeding changes from pink to bright red. However, you may pass an occasional walnut-sized clot once or twice for the first week . * If you experience a sharp, shooting pain in your calves. * If you discover a hard, reddened area on your breast or if you experience flu-like symptoms. DIET: * Eat regular, well-balanced meals. * Drink plenty of fluids daily. If , drink to thirst. Pelvic rest for 4-6 weeks. May take over the counter Ibuprofen or Tylenol for pain. Call if saturating more than a pad an hour, leg redness, pain and swelling, temperature>100.4. No strenuous activity. Take daily vitamin as long as . Patient Instructions: Vaginal Delivery (DC) Stand Alone Forms: General Discharge Information Follow-up/Referrals: Afua Haro MD [Physician] - 4 Weeks (Call for appointment) Discharge Medications: Continued ondansetron HCl [Zofran] 4 mg tablet 4 mg PO Q8H PRN (Reason: Nausea) RF: 0 valacyclovir 1 gram tablet 1,000 mg PO DAILY Qty: 35 RF: 0 cetirizine [Zyrtec] 10 mg Tablet 10 mg PO DAILY PRN (Reason: Allergy Symptoms) RF: 0 acetaminophen [Tyle
--- NOTE | 2020-09-12 08:43 | P.PNOB_ITS ---
OB - Triage/Final Diagnosis Visit Information Comments/Additional reasons for admission: I have assessed the risk for this patient, Angelina Mckeon, and determined that she would benefit from observation care. Evaluation Laboratory results: Laboratory Tests 08/19/20 08/19/20 08/19/20 06:02 06:02 06:02 WBC 11.4 H RBC 4.20 Hgb 12.4 Hct 37.2 MCV 88.6 MCH 29.5 MCHC 33.3 RDW 15.1 H Plt Count 115 L D MPV 12.2 H Immature Gran % (Auto) 1.1 H Neut % (Auto) 85.8 H Lymph % (Auto) 9.[address] % (Auto) 3.3 Eos % (Auto) 0.5 Baso % (Auto) 0.3 Lymph # (Auto) 1.03 [place] # (Auto) 0.4 Eos # (Auto) 0.1 Baso # (Auto) 0.0 Abs Immat Gran (auto) 0.13 H Absolute Neuts (auto) 9.8 H Absolute Nucleated RBC 0.0 Nucleated RBC % 0.0 RPR Non-reactive Blood Type A Positive Antibody Screen Negative 08/20/20 05:19 WBC RBC Hgb 10.0 L Hct 29.6 L MCV MCH MCHC RDW Plt Count MPV Immature Gran % (Auto) Neut % (Auto) Lymph % (Auto) [place] % (Auto) Eos % (Auto) Baso % (Auto) Lymph # (Auto) [place] # (Auto) Eos # (Auto) Baso # (Auto) Abs Immat Gran (auto) Absolute Neuts (auto) Absolute Nucleated RBC Nucleated RBC % RPR Blood Type Antibody Screen Final Diagnosis (1) False labor: Code(s): O47.9 - False labor, unspecified Status: Acute
== END 2020-08-21 12:55 | disposition home or self-care (01) | DRG 560 ==
LOC: ANHLDR 07:18 → ANHOB2 08-21 09:45 → ANHLDR 08-23 13:41 → ANHOB2 08-23 13:41
PROVIDERS: Admitting Provider Obstetrics & Gynecology; Visit Provider Obstetrics & Gynecology
DX: O62.3 Precipitate labor (principal); O70.1 Second degree perineal laceration during delivery; O98.52 Other viral diseases complicating childbirth; O99.824 Streptococcus B carrier state complicating childbirth; Z3A.39 39 weeks gestation of pregnancy; Z37.0 Single live birth
CPT/HCPCS: 36415; 85014; 85018; 85025; 86592; 86850; 86900; 86901; 88307; 90715; A9270; J2590; J3010

== ENCOUNTER 2020-11-27 13:13 | Emergency (ER) | payer OTHER, SELFPAY ==
--- NOTE | ~2020-11-27 | XR_ITS ---
XR wrist LT min 3V 11/27/2020 13:31 INDICATION: Left wrist pain PROCEDURE: 4 views left wrist COMPARISON: No prior studies for comparison. FINDINGS: Fracture, dislocation or subluxation is not identified. The soft tissues appear within norm al limits. No foreign bodies are identified. IMPRESSION: 1: NO ACUTE BONE OR JOINT ABNORMALITY IDENTIFIED. Reviewed, dictated and finalized at location A.
[2020-11-27 13:18] VITALS: BP 116/78; PULSE 78; RESP 18; TEMP 37; O2SAT 99
--- NOTE | 2020-11-27 13:59 | ED.GENADULT ---
HPI - General Adult General Chief complaint: Extremity Injury, Upper Stated complaint: lt wrist pain Time Seen by Provider: 11/27/20 14:46 Source: patient Mode of arrival: ambulatory Limitations: no limitations History of Present Illness HPI narrative: 35-year-old female patient presents to the [facility] with complaints of left wrist swelling and pain for the past month. Patient states that she gave to a baby about 3 months ago and noticed that while she was out on leave that her left wrist was kind of sore however when she started back at work the left wrist has gotten worse with some soreness, swelling and pain. 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 Patient states that she does have pain in the left wrist at nighttime as well. Denies any specific trauma that she can remember. Related Data Home Medications Medication Instructions Recorded Confirmed acetaminophen [Tylenol Extra 500 mg PO Q6H PRN 05/12/20 10/19/20 Strength] ibuprofen 200 mg PO Q6H PRN 11/27/20 11/27/20 Allergies Allergy/AdvReac Type Severity Reaction Status Date / Time No Known Allergies Allergy Verified 10/19/20 11:08 Review of Systems Review of Systems: Narrative: CONSTITUTIONAL: Denies fever, chills, or sweats. EYES: Denies visual changes, redness, or discharge. ENT: Denies rhinorrhea, congestion, sore throat, or otalgia. CARDIOVASCULAR: Denies chest pain, palpitations, or edema. RESPIRATORY: Denies cough or dyspnea. GASTROINTESTINAL: Denies abdominal pain, nausea, vomiting, or diarrhea. GENITOURINARY: Denies dysuria or hematuria. SKIN: Denies rash or itching. MUSCULOSKELETAL: Denies back pain, joint pain, or myalgia. Positive left wrist pain NEUROLOGIC: Denies headache, numbness, or weakness. PSYCHIATRIC: Denies anxiety or depression. [facility] Past Medical History Medical History Abnormal Pap smear of cervix 01/2020, High Risk HPV HSV (herpes simplex virus) infection Migraines Miscarriage Psoriasis Vaginal delivery x2 Surgical History Surgical History H/O dilation and curettage Family History Family History Father Diabetes mellitus Mother Hypertension Grandparent Diabetes mellitus Social History Social History Smoking status: Never smoker Alcohol intake: never Substance use: never Gender identity (if verbalized by the patient): Female Spiritual care concerns: No Exam Narrative: Exam Narrative: GENERAL: Well-appearing, well-nourished, and in no acute distress. HEAD: Normocephalic, atraumatic. EYES: PERRLA and EOMI. ENT: Nares clear, no rhinorrhea or epistaxis. Mucous membranes moist. NECK: Supple. No lymphadenopathy CHEST: Clear to auscultation. No respiratory distress. HEART: Regular rate and rhythm. No murmur heard. Normal peripheral pulses. ABDOMEN: Soft, nontender, nondistended, normal active bowel sounds. EXTREMITIES: The L wrist is without obvious asymmetry or deformity when compared to the R wrist. There is a cyst noted to the radial side of the left wrist. No surface trauma, open wounds, swelling, or obvious deformity. No overlying erythema or warmth. No bony crepitus or focal area of TTP. No scaphoid fullness or tenderness to direct palpation or axial load. Normal flex/extension, ulnar/radial deviation. Motor/sensory function of ulnar, radial, median nerves intact. Ulnar and radial pulses intact. Negaitve Phalen's/positive Tinel's sign. Negative Booker test. SKIN: Warm, dry, no rash. NEURO: No focal deficits. Alert and oriented x3. Course Vital Signs Vital signs: Vital Signs Temperature 37.0 C 11/27/20 13:18 Pulse Rate 78 11/27/20 13:18 Respiratory Rate 18 11/27/20 13:18 Blood Pressure 116
== END 2020-11-27 14:52 | disposition home or self-care (01) ==
PROVIDERS: Emergency Provider Nurse Practitioner Family
DX: M25.532 Pain in left wrist (principal); M25.432 Effusion, left wrist
CPT/HCPCS: 73110; 99213; G0463

== ENCOUNTER 2021-08-28 01:40 | Day surgery (SDC) | payer OTHER, SELFPAY ==
[2021-08-17 08:49] VITALS: BMI 28.4
--- NOTE | 2021-08-17 08:50 | PC.NURSE ---
Report to the Outpatient Waiting Room, entrance under the green pavilion located off [facility], at time ___1130____ on date __08/28/20 . OR Time: __1329 . - You and your visitor will be asked a series of questions to screen for COVID 19 for your protection. - A mask is required within the hospital. Preoperative COVID Testing Requirements: No COVID Test needed if: (proof is required; if not received patient will have Rapid Test prior to entry) - Patient has received COVID Vaccine at least 14 days prior to procedure date or - Patient has positive COVID test result within last 90 days of surgery date. COVID Test needed if above criteria is not met If not COVID vaccinated a COVID test must be conducted within 72 hours of surgery and patient is asked to isolate self from time of testing until procedure. You will go to the [facility] for your COVID testing. The [facility] is located at the corner of [address] [facility]. You will only be called if COVID results are positive and your surgeon may reschedule your elective surgery date. Patients may have clear liquids (water, carbonated beverages, clear teas, apple juice) until 3 hours prior to surgery with a maximum of 20 ounces. - No food from midnight until time of surgery - Infants may have breast milk until 4 hours before surgery, formula 6 hours prior to surgery. - Children will be allowed to drink immediately following surgery. If applicable, please bring a bottle or sippy cup to assist with drinking. Juice, water, soda, and popsicles are readily available. For infants on formula, please bring formula the day of surgery. Pacifiers are allowed. Take the following medications with a SIP of water the morning of surgery: 0 Medications to discontinue per physician 0 Date to take last dose 0____ Please no make-up, nail lao, hairspray, perfume, deodorant, or body powder the day of surgery. No jewelry (including any body piercings) or valuables the day of surgery, leave them at home. Please take a shower or bath the night before, or the morning of, surgery with an antibacterial soap. Wear comfortable, loose fitting clothing. Children are encouraged to wear pajamas. - Jewelry must be removed prior to entering the operating room. Rings and piercings that are not removed may be cut off. - The hospital will not accept responsibility for valuables. - Please leave all valuables, including medications, at home the day of surgery. If you are going home after surgery, a licensed corrugated fastener driver must drive you home. - NO public transportation without another adult. - We recommend that an adult stay with you for 24 hours following discharge. - We also recommend that you do not drive, make important decision, drink alcoholic beverages, or take any drugs that were not prescribed by your health care provider for at least 24 hours after your discharge time. For Pediatric surgeries, we recommend two adults accompany the child home (only one inside the building at this time). One visitor will be allowed to accompany the patient into the hospital. Patients visitor will be instructed to remain with patient at all times or leave the building. We will allow the visitor to come back to the postoperative area when patient is ready. Follow any additional instructions given to you from your surgeon. Telephone instructions given to __PATIENT and asked if any additional questions and then verbalized understanding. Patient advised to call surgeon office or pre surgery nurse liaison [phone] if any additional questions.
--- NOTE | 2021-08-24 08:44 | PM.IMHP ---
H&P: HPI History of Present Illness Date/Time: 08/24/21 08:44 who desires sterilization. No complaints Chief Complaint: desires sterilization Review of Systems Review of Systems: All systems reviewed & are unremarkable except as noted in HPI and below PMFSH Past Medical History Medical History Abnormal Pap smear of cervix 01/2020, High Risk HPV HSV (herpes simplex virus) infection Migraines Miscarriage Psoriasis Vaginal delivery x2 Surgical History Surgical History H/O dilation and curettage Family History Family History Father Diabetes mellitus Mother Hypertension Grandparent Diabetes mellitus Social History Social History Smoking status: Former smoker Tobacco type: e-cigarettes/vaping Additional smoking assessment comments: < 1YR QUIT 5-6 YRS AGO Alcohol intake: never Alcohol use details: 1 PER MONTH Substance use: never Gender identity (if verbalized by the patient): Female Spiritual care concerns: No Meds Home Medications and Allergies Home Medications Medication Instructions Recorded Confirmed Type acetaminophen [Tylenol Extra 500 mg PO Q6H PRN 05/12/20 08/17/21 History Strength] ibuprofen 200 mg PO Q6H PRN 11/27/20 08/17/21 History Allergies Allergy/AdvReac Type Severity Reaction Status Date / Time No Known Allergies Allergy Verified 08/17/21 08:43 Exam Const: General: healthy appearing, no acute distress, alert and awake Resp: Auscultation: clear to auscultation bilaterally Cardio: Rate: regular rate Rhythm: regular rhythm GI: Inspection: non-distended GI Palp: Yes Soft to palpation and No Tenderness to palpation present (GI) : Bimanual exam- vagina & uterus: normal bimanual exam, uterine size normal, uterine mobility normal, non-tender and soft Bimanual Exam- Adnexa, other: normal adnexae, no masses and No adnexal tenderness Extrem: General: no pedal edema and no calf tenderness Psych: Mental Status: mental status grossly normal Assessment and Plan Assessment and plan (1) Contraceptive management: Code(s): Z30.9 - Encounter for contraceptive management, unspecified Status: Acute Assessment and Plan: She signed consent after risks, benefits, complications, and alternatives discussed for L/S BTL with Juan M murray. She expressed understanding and wishes to proceed
[2021-08-28] VITALS (10 sets, daily range): BP systolic 101–125; BP diastolic 69–82; PULSE 46–87; RESP 12–18; TEMP 36.1–36.4; O2SAT 97–100
--- NOTE | 2021-08-28 08:07 | WPDANESEPPF ---
Anes - Initial Pre Proc Eval Procedure: Operation Date: 08/28/21 13:30 Proposed Procedures p Laparoscopic Bilateral Tubal Sterilization with Filshie Clips - Afua Haro MD Date/Time: 08/28/21 08:07 Surgeon: Afua Haro MD Pre Op Diagnosis: desires sterlization Patient Data Age: 36 Gender: F Height: 1.68 m Weight: 80 kg Allergies Allergy/AdvReac Type Severity Reaction Status Date / Time No Known Allergies Allergy Verified 08/17/21 08:43 Home Medications Medication Instructions Recorded Confirmed Type acetaminophen [Tylenol Extra 500 mg PO Q6H PRN 05/12/20 08/28/21 History Strength] ibuprofen 200 mg PO Q6H PRN 11/27/20 08/28/21 History Patient hx anesthesia problems: none Family hx anesthesia problems: none Results Review: All pre-operative results and documents have been reviewed as part of the pre-operative evaluation. [facility] Past Medical History Medical History (Updated 08/28/21 @ 08:07 by Alin Gilmore MD) Abnormal Pap smear of cervix 01/2020, High Risk HPV HSV (herpes simplex virus) infection Migraines Miscarriage Overweight (BMI 25.0-29.9) Psoriasis Vaginal delivery x2 Surgical History Surgical History H/O dilation and curettage Family History Family History Father Diabetes mellitus Mother Hypertension Grandparent Diabetes mellitus Social History Social History Smoking status: Former smoker Tobacco type: e-cigarettes/vaping Additional smoking assessment comments: < 1YR QUIT 5-6 YRS AGO Alcohol intake: never Alcohol use details: 1 PER MONTH Substance use: never Living arrangements: with family Gender identity (if verbalized by the patient): Female Spiritual care concerns: No Anes - Eval Final PreProcedure Day of Procedure 08/28/21 08:07 Patient weight: overweight Heart: regular rate and rhythm Lungs: clear to auscultation and normal air movement Airway: Mallampati scale class II Neurological: alert and oriented Last oral intake: >/= 8 hours ASA classification: II Emergent: no Anesthetic plan: proceed Anesthesia type and monitoring: general ETT Results Review: All pre-operative results and documents have been reviewed as part of the pre-operative evaluation. Informed Consent: The patient's anesthetic plan and its attendant risks and benefits were discussed with the patient/family/POA. Questions were solicited and answers provided to the satisfaction of the patient/family/POA.
[2021-08-28] MEDS: LACTATED RINGERS 1,000 ML 30 ML IV CONT ×2 (12:10→14:52)
[2021-08-28] MEDS: KETOROLAC 15 MG/ML VIAL (*BKC) IV PUSH (12:12)
[2021-08-28] MEDS: ACETAMINOPHEN 500 MG TABLET 1000 MG PO (12:12)
--- NOTE | 2021-08-28 13:36 | WPDHPUPDATE1 ---
History and Physical Update Update Date/Time: 08/28/21 13:36 History and Physical has been reviewed, including an updated exam of the patient. There are NO changes in the patient's condition. Risks, benefits, and alternatives have been discussed and questions answered. Patient agrees to proceed with procedure.
--- NOTE | 2021-08-28 14:43 | W.PM.PROC2 ---
Procedure Note - Detailed Date of Procedure 08/28/21 Pre-op Diagnosis desires sterilization Post-op Diagnosis Same Procedure Performed L/S BTL with Filshie clips Surgeon Afua Haro MD Anesthesia General Indications Desires sterilization Findings normal uterus, tubes, ovaries, liver, gall bladder, appendix Description of Procedure She was taken to the operating room where general anesthesia was obtained. She was prepared and draped in the normal sterile fashion in the dorsal lithotomy position. Marcaine was injected infraumbilically. A 5 mm skin incision was made in the infraumbilical fold with a scalpel. A 5 mm non bladed trocar was placed with the camera in the trocar under direct visualization into the peritoneal cavity. Insufflation was begun. She was placed in Trendelenburg. An 8 mm trocar was placed in the midline suprapubic area. The right fallopian tube was identified. A Filshie clip was placed on the mid isthmic portion of the right fallopian tube, making sure the entire circumference of the tube was contained in the clip. Same procedure was performed on the left fallopian tube. All operative sites were noted to be hemostatic. The pneumoperitoneum was allowed to escape. Both trocars were removed. Both skin incisions were closed using 4 0 Monocryl in subcuticular fashion. She tolerated the procedure well. Sponge, lap, needle, and instrument counts were correct x2. She was taken to the recovery room in stable condition. Estimated Blood Loss 5 Drains No Packing No Pathology None sent Complications No immediate complications Condition Stable Disposition PACU
[2021-08-28] MEDS: fentaNYL CITRATE INJ (*CRX) 100 MCG/2 ML VIAL 25 MCG IV PUSH ×4 (15:12→15:32)
[2021-08-28] MEDS: oxyCODONE HCL (*CRX) 5 MG TAB IR PO (16:04)
--- NOTE | 2021-08-28 17:13 | SUR.PHASEII ---
1715 PT MEETS ANESTHESIA DISCHARGE CRITERIA. PT DRESSED & WAITING FOR RIDE HOME.
== END 2021-08-28 17:21 | disposition home or self-care (01) ==
PROVIDERS: Visit Provider Obstetrics & Gynecology
PROC: (CPT 58671; principal; 2021-08-28 13:30)
DX: Z30.2 Encounter for sterilization (principal); R87.810 Cervical high risk human papillomavirus (HPV) DNA test positive; B00.9 Herpesviral infection, unspecified; Z87.891 Personal history of nicotine dependence
CPT/HCPCS: 58671; A9270; J0330; J1100; J1170; J1885; J2250; J2405; J2704; J3010; J7120

== ENCOUNTER 2022-02-06 15:02 | Emergency (ER) | payer OTHER, SELFPAY ==
--- NOTE | ~2022-02-06 | XR_ITS ---
EXAMINATION: XR foot RT min 3V DATE: 02/06/2022 15:34 INDICATION: Right foot pain TECHNIQUE: Dorsoplantar, lateral, and 2 oblique views of the right foot were obtained. COMPARISON: None. FINDINGS: There is no fracture, dislocation, or subluxation. The bones, soft tissues, and joint space s are normal. IMPRESSION: 1. No acute osseous abnormality. Reviewed, dictated and finalized at location B.
[2022-02-06 15:08] VITALS: BP 109/75; PULSE 101; RESP 14; TEMP 36.7; O2SAT 100
--- NOTE | 2022-02-06 16:15 | ED.GENADULT ---
HPI - General Adult General Chief complaint: Extremity Problem,Nontraumatic Stated complaint: injury to right foot Time Seen by Provider: 02/06/22 15:45 Source: patient and RN notes reviewed Mode of arrival: ambulatory Limitations: no limitations History of Present Illness HPI narrative: 36-year-old female who presents to [facility] with complaints of pain to her right foot for the past 2 days with no known injury to her foot noted with some minimal swelling note to lateral foot region.Patient reports that she has been on her feet lot with her job and s concerned for stress fracture, Patient reports that she has been icing foot and taking Ibuprofen. MD complaint: pain right foot Onset (ago): day(s) (2) Location: lower extremity (right foot) Severity scale (1-10): 2 (throbbing) Treatments prior to arrival: NSAID and cold therapy Related Data Home Medications Medication Instructions Recorded Confirmed No Home Medications 02/06/22 02/06/22 Allergies Allergy/AdvReac Type Severity Reaction Status Date / Time No Known Allergies Allergy Verified 09/05/21 13:11 Review of Systems Review of Systems: CONSTITUTIONAL: Denies fever, chills, or sweats. EYES: Denies visual changes, redness, or discharge. ENT: Denies rhinorrhea, congestion, sore throat, or otalgia. CARDIOVASCULAR: Denies chest pain, palpitations, or edema. RESPIRATORY: Denies cough or dyspnea. GASTROINTESTINAL: Denies abdominal pain, nausea, vomiting, or diarrhea. GENITOURINARY: Denies dysuria or hematuria. SKIN: Denies rash or itching. MUSCULOSKELETAL: Denies back pain,positive for right foot pain, or myalgia. NEUROLOGIC: Denies headache, numbness, or weakness. PSYCHIATRIC: Denies anxiety or depression. All systems reviewed & are unremarkable except as noted in HPI and below PMFSH Past Medical History Medical History (Updated 02/07/22 @ 00:00 by Background Daemon) Abnormal Pap smear of cervix 01/2020, High Risk HPV HSV (herpes simplex virus) infection Migraines Miscarriage Overweight (BMI 25.0-29.9) Psoriasis Vaginal delivery x2 Surgical History Surgical History H/O dilation and curettage History of bilateral tubal ligation 08/28/21 L/S BTL with Filshie clips by Dr Haro. Family History Family History Father Diabetes mellitus Mother Hypertension Grandparent Diabetes mellitus Social History Social History Smoking status: Former smoker Tobacco type: e-cigarettes/vaping Additional smoking assessment comments: < 1YR QUIT 5-6 YRS AGO Alcohol intake: never Alcohol use details: 1 PER MONTH Substance use: never Gender identity (if verbalized by the patient): Female Spiritual care concerns: No Comments At time of signature, agree with nursing past medical, surgical, social and family history. There is no relevant family history pertinent to the presenting complaint Exam Narrative: GENERAL: Well-appearing, well-nourished, and in no acute distress. HEAD: Normocephalic, atraumatic. EYES: PERRLA and EOMI. ENT: Nares clear, no rhinorrhea or epistaxis. Mucous membranes moist.TM's normal, throat pink with no lesions or swelling NECK: Supple.no lymphadenopathy CHEST: Clear to auscultation. No respiratory distress.SAO2 100% on room air HEART: Regular rate and rhythm. No murmur heard. Normal peripheral pulses ABDOMEN: Soft, nontender, nondistended, normal active bowel sounds. EXTREMITIES: Normal range of motion. minimal edema lateral aspect of right foot, full ROM of right foot ad ankle, no obvious deformity, circulation and sensation intact . SKIN: Warm, dry, no rash. NEURO: No focal deficits. Alert and oriented x3. Course Course Level of Care: Express Care Visit Vital Signs Vital signs: Vital Signs Temperature 36.7 C 02/06/22 15:08 Pulse Rate 101 H
== END 2022-02-06 16:38 | disposition home or self-care (01) ==
PROVIDERS: Emergency Provider Registered Nurse
DX: S93.601A Unspecified sprain of right foot, initial encounter (principal); X58.XXXA Exposure to other specified factors, initial encounter
CPT/HCPCS: 73630; 99213; G0463

== ENCOUNTER 2022-07-13 13:27 | Emergency (ER) | payer OTHER, SELFPAY ==
--- NOTE | ~2022-07-13 | XR_ITS ---
EXAMINATION: XR forearm LT 2V DATE: 07/13/2022 13:51 INDICATION: Left forearm injury and pain. TECHNIQUE: 2 views of left forearm were obtained. COMPARISON: Left wrist radiograph 11/27/2020 FINDINGS: Bone alignment is normal. No fracture. Joint spaces are well maintained. There is no elbow joint effusion. IMPRESSION: 1. No fracture. Reviewed, dictated and finalized at location A. UCT DESIGN ENGINEER IMPRESSION: 1. No fracture.
[2022-07-13 13:38] VITALS: BP 115/74; PULSE 93; RESP 20; TEMP 36.7; O2SAT 98
--- NOTE | 2022-07-13 14:07 | ED.UPPEXIN ---
HPI - Extremity Injury (Upper) General Chief Complaint: Extremity Injury, Upper Stated Complaint: left elbow injury Time Seen by Provider: 07/13/22 13:45 Source: patient Mode of arrival: ambulatory Limitations: no limitations History of Present Illness HPI narrative: Angelina is a 37-year-old female patient presenting to the clinic today with complaints of left elbow/forearm pain x1 day. She reports that she had a ground level fall yesterday after tripping over her dog while they were outside. She reports pain to the proximal forearm. Related Data Home Medications Medication Instructions Recorded Confirmed No Home Medications 02/06/22 07/13/22 Allergies Allergy/AdvReac Type Severity Reaction Status Date / Time No Known Allergies Allergy Verified 07/13/22 14:02 Review of Systems Review of Systems: Pertinent positives per HPI. Patient denies any fever, chills, rash, headache, visual changes, dizziness, cough, runny nose, sore throat, shortness of breath, chest pain, palpitations, nausea, vomiting, diarrhea, constipation, abdominal pain, or any urinary issues. PMFSH Past Medical History Medical History Abnormal Pap smear of cervix 01/2020, High Risk HPV HSV (herpes simplex virus) infection Migraines Miscarriage Overweight (BMI 25.0-29.9) Psoriasis Vaginal delivery x2 Surgical History Surgical History H/O dilation and curettage History of bilateral tubal ligation 08/28/21 L/S BTL with Filshie clips by Dr Haro. Family History Family History Father Diabetes mellitus Mother Hypertension Grandparent Diabetes mellitus Social History Social History Smoking status: Former smoker Tobacco type: e-cigarettes/vaping Additional smoking assessment comments: < 1YR QUIT 5-6 YRS AGO Alcohol intake: never Alcohol use details: 1 PER MONTH Substance use: never Living arrangements: with family Gender identity (if verbalized by the patient): Female Spiritual care concerns: No Comments At the time of my signature, I reviewed and agree with the nursing past medical, surgical, social, and family history. There is no relevant family history pertinent to the patient complaint. Exam Narrative: General: Well-developed, well nourished, in no apparent distress Head: Normocephalic, atraumatic. Cardio: Regular rate and rhythm, s1 and s2 normal, no murmur appreciated. Resp: Clear to auscultation bilaterally, no rhonchi, rales, wheezing or rubs. Musculoskeletal: No deformity, tender to palpation over the proximal lateral forearm, grossly normal range of motion, muscle strength strong and equal, peripheral pulse strong, no edema, no cyanosis, normal gait and station Course Course Emergency Course: Portions of this record may have been created with voice recognition software. Level of Care: Express Care Visit Vital Signs Vital signs: Vital Signs Temperature 36.7 C 07/13/22 13:38 Pulse Rate 93 07/13/22 13:38 Respiratory Rate 20 07/13/22 13:38 Blood Pressure 115/74 07/13/22 13:38 Pulse Oximetry 98 07/13/22 13:38 Oxygen Delivery Room Air 07/13/22 13:38 Temperature 36.7 C 07/13/22 13:38 Pulse Rate 93 07/13/22 13:38 Respiratory Rate 20 07/13/22 13:38 Blood Pressure 115/74 07/13/22 13:38 Pulse Oximetry 98 07/13/22 13:38 Oxygen Delivery Room Air 07/13/22 13:38 Vital signs reviewed MDM - Extremity Injury (Upper) MDM Narrative Medical decision making narrative: At the time of visit patient is resting comfortably on the exam table. X-ray of the left forearm was completed was negative for any fracture or malalignment. I suspect patient has a forearm contusion. Supportive measures were discussed with the patient
== END 2022-07-13 14:21 | disposition home or self-care (01) ==
PROVIDERS: Emergency Provider Nurse Practitioner Family; PCP Emergency Medicine
DX: M79.631 Pain in right forearm (principal); Z87.891 Personal history of nicotine dependence; W18.09XA Striking against other object with subsequent fall, initial encounter
CPT/HCPCS: 73090; 99213; G0463

== ENCOUNTER 2023-01-27 14:00 | Emergency (ER) | payer OTHER, SELFPAY ==
[2023-01-27 14:06] VITALS: BP 106/79; PULSE 88; RESP 20; TEMP 36.7; O2SAT 98
--- NOTE | 2023-01-27 14:49 | ED.EAR ---
HPI - Ear Problem General Chief complaint: Ear Stated complaint: left ear Source: patient Mode of arrival: ambulatory Limitations: no limitations History of Present Illness HPI Narrative: Pt presents for decreased hearing in the left ear as of yesterday. Her symptoms are better today. No tinnitus, otalgia, drainage from the ear, sore throat or other infectious symptoms. She states she had similar symptoms in the past with impacted cerumen. She does not smoke. Her daughter is here being evaluated for an injury to the nose. She thought since she was already here, she would investigate this further. Related Data Home Medications Medication Instructions Recorded Confirmed No Home Medications 02/06/22 01/27/23 Allergies Allergy/AdvReac Type Severity Reaction Status Date / Time No Known Allergies Allergy Verified 01/27/23 14:11 Review of Systems Review of Systems: CONSTITUTIONAL: Denies fever, chills, or sweats. EYES: Denies visual changes, redness, or discharge. ENT: Reports decreased hearing on the left. Denies tinnitus, drainage from left ear, otalgia or hearing loss on the right. Denies rhinorrhea, congestion, sore throat, or otalgia. CARDIOVASCULAR: Denies chest pain, palpitations, or edema. RESPIRATORY: Denies cough or dyspnea. GASTROINTESTINAL: Denies abdominal pain, nausea, vomiting, or diarrhea. GENITOURINARY: Denies dysuria or hematuria. SKIN: Denies rash or itching. MUSCULOSKELETAL: Denies back pain, joint pain, or myalgia. NEUROLOGIC: Denies headache, numbness, dizziness, or weakness. PSYCHIATRIC: Denies anxiety or depression. PMFSH Past Medical History Medical History Abnormal Pap smear of cervix 01/2020, High Risk HPV HSV (herpes simplex virus) infection Migraines Miscarriage Overweight (BMI 25.0-29.9) Psoriasis Vaginal delivery x2 Surgical History Surgical History H/O dilation and curettage History of bilateral tubal ligation 08/28/21 L/S BTL with Filshie clips by Dr Haro. Family History Family History Father Diabetes mellitus Mother Hypertension Grandparent Diabetes mellitus Social History Social History Smoking status: Former smoker Tobacco type: e-cigarettes/vaping Additional smoking assessment comments: < 1YR QUIT 5-6 YRS AGO Alcohol intake: never Alcohol use details: 1 PER MONTH Substance use: never Living arrangements: with family Gender identity (if verbalized by the patient): Female Spiritual care concerns: No Exam Narrative: GENERAL: Well-appearing, well-nourished, and in no acute distress. HEAD: Normocephalic, atraumatic. EYES: PERRLA and EOMI. ENT: Nares clear, no rhinorrhea or epistaxis. Mucous membranes moist. Oropharynx without tonsillar hypertrophy exudate or other lesions. Bilateral TMs pearly reeves nonbulging. There is a small amount of middle ear fluid on the left. NECK: Supple. No adenopathy or masses. No carotid bruits or JVD CHEST: Clear to auscultation. No respiratory distress. No wheezes rales or rhonchi HEART: Regular rate and rhythm. No murmur heard. Normal peripheral pulses. ABDOMEN: Soft, nontender, nondistended, normal active bowel sounds. EXTREMITIES: Normal range of motion. No edema. SKIN: Warm, dry, no rash. NEURO: No focal deficits. Alert and oriented x3. PSYCH: Normal mood and affect. Course Course Emergency Course: This is a 37-year-old female who presented for evaluation of decreased hearing in left ear as of yesterday, although improving now. No evidence of otitis media. Tympanic membrane is intact. No cerumen impaction. Exam is consistent with eustachian tube dysfunction on the left. Flonase and Sudafed may help. Follow up with primary provider. Go to the ER
== END 2023-01-27 15:05 | disposition home or self-care (01) ==
PROVIDERS: Emergency Provider Nurse Practitioner
DX: H69.92 Unspecified Eustachian tube disorder, left ear (principal); Z87.891 Personal history of nicotine dependence; L40.9 Psoriasis, unspecified
CPT/HCPCS: 99211; G0463

== ENCOUNTER 2023-05-13 17:04 | Emergency (ER) | payer OTHER, MEDICAID, SELFPAY ==
[2023-05-13 17:10] VITALS: BP 121/79; PULSE 84; RESP 18; TEMP 36.5; O2SAT 98
--- NOTE | 2023-05-13 17:32 | ED.URI ---
HPI - URI/Sore Throat General Chief Complaint: Upper Respiratory Infection Stated Complaint: Cough, Chest Pain Time Seen by Provider: 05/13/23 17:32 Source: patient, RN notes reviewed and old records reviewed Mode of arrival: ambulatory Limitations: no limitations History of Present Illness HPI Narrative: 38-year-old female presents to the [facility] with complaints cough and chest wall discomfort when coughing Reports not getting relief with [id number] products. Has been going on several days. Patient states her chest wall hurts only after coughing. No constant chest pain. No abdominal pain. Denies fevers. Treatments prior to arrival: cold medicine Related Data Allergies Allergy/AdvReac Type Severity Reaction Status Date / Time No Known Allergies Allergy Verified 01/27/23 14:11 Review of Systems Review of Systems: All systems reviewed & are unremarkable except as noted in HPI and below Constitutional: Constitutional: Reports no additional constitutional complaints Eyes: Eyes: Reports no additional eye complaints ENT: Reports system reviewed and no additional complaints, except as documented Cardiovascular: Cardiovascular: Reports no additional cardiovascular complaints, Denies chest pain and Denies dyspnea Respiratory: Respiratory: Reports as per HPI, Denies chest congestion, Reports cough and Denies dyspnea Gastrointestinal: Gastrointestinal: Reports no additional gastrointestinal complaints, Denies abdominal pain, Denies nausea and Denies vomiting Musculoskeletal: Musculoskeletal: Reports no additional musculoskeletal complaints Integumentary/Breasts: Skin/Breast: Reports system reviewed and no additional complaints, except as docu Neurologic: Reports system reviewed and no additional complaints, except as documented Psychiatric: Psychiatric: Reports no additional psychiatric complaints Allergic/Immunologic: Allergic/Immunologic: Reports no additional allergic/immunologic complaints PMFSH Past Medical History Medical History Abnormal Pap smear of cervix 01/2020, High Risk HPV HSV (herpes simplex virus) infection Migraines Miscarriage Overweight (BMI 25.0-29.9) Psoriasis Vaginal delivery x2 Surgical History Surgical History H/O dilation and curettage History of bilateral tubal ligation 08/28/21 L/S BTL with Filshie clips by Dr Haro. Family History Family History Father Diabetes mellitus Mother Hypertension Grandparent Diabetes mellitus Social History Social History Smoking status: Former smoker Tobacco type: e-cigarettes/vaping Additional smoking assessment comments: < 1YR QUIT 5-6 YRS AGO Alcohol intake: never Alcohol use details: 1 PER MONTH Substance use: never Living arrangements: with family Gender identity (if verbalized by the patient): Female Spiritual care concerns: No Comments At the time of my signature, I reviewed and agree with the nursing past medical, surgical, social, and family history. There is no relevant family history pertinent to the patient complaint. Exam Const: General: cooperative, healthy appearing, comfortable, no acute distress, well developed, alert and well nourished Nutritional Appearance: well nourished and obese Orientation/consciousness: patient oriented x3 Limitations: no limitations HENMT: Head: normal to inspection Ears: hearing grossly normal bilaterally, external ears normal, TM's normal bilaterally, EAC's normal, mastoids normal and no periauricular adenopathy Face/Nose/Sinus: Normal external nose present, Normal nares present, Normal nasal mucous membranes and turbinates present, normal facial exam and face symmetric Face and sinus: normal facial exam and face symmetric Mouth: Yes Normal oral and p
== END 2023-05-13 17:46 | disposition home or self-care (01) ==
PROVIDERS: Emergency Provider Nurse Practitioner
DX: J40 Bronchitis, not specified as acute or chronic (principal); L40.9 Psoriasis, unspecified
CPT/HCPCS: 99213; G0463

== ENCOUNTER 2024-05-13 13:27 | Emergency (ER) | payer OTHER, SELFPAY ==
[2024-05-13 13:34] VITALS: BP 121/69; PULSE 77; RESP 16; TEMP 36.4; O2SAT 99
--- NOTE | 2024-05-13 14:05 | ED.UPPEXIN ---
HPI - Extremity Injury (Upper) General Chief Complaint: Extremity Injury, Upper Stated Complaint: Fall Injury/Left Shoulder Source: patient Mode of arrival: ambulatory Limitations: no limitations History of Present Illness HPI narrative: 39-year-old female presented for complaint of shoulder pain after injury last night. States she tripped over her dog and in attempt to avoid landing on her baby, she struck the door. Endorses full ROM to the arm. States the pain was bad last night, preventing her from sleeping. Denies numbness, tingling or weakness of the extremity. Related Data Allergies Allergy/AdvReac Type Severity Reaction Status Date / Time No Known Allergies Allergy Verified 05/13/24 13:31 Review of Systems Review of Systems: CONSTITUTIONAL: Denies body aches, fever, chills CARDIOVASCULAR: Denies chest pain, palpitations, or edema. RESPIRATORY: Denies cough or dyspnea. SKIN: Denies wounds. MUSCULOSKELETAL: Reports left shoulder pain NEUROLOGIC: Denies headache, numbness, tingling, or weakness. PSYCH: Denies depression or anxiety. All systems reviewed & are unremarkable except as noted in HPI and below PMFSH Past Medical History Medical History Overweight (BMI 25.0-29.9) Psoriasis Abnormal Pap smear of cervix 01/2020, High Risk HPV HSV (herpes simplex virus) infection Vaginal delivery x2 Miscarriage Migraines Surgical History Surgical History Hx of cholecystectomy History of bilateral tubal ligation 08/28/21 L/S BTL with Filshie clips by Dr Haro. H/O dilation and curettage Family History Family History Father Diabetes mellitus Mother Hypertension Grandparent Diabetes mellitus Social History Social History Smoking status: Former smoker Tobacco type: e-cigarettes/vaping Additional smoking assessment comments: < 1YR QUIT 5-6 YRS AGO Alcohol intake: never Alcohol use details: 1 PER MONTH Substance use: never Living arrangements: with family Gender identity (if verbalized by the patient): Female Spiritual care concerns: No Comments At time of signature, I have reviewed and agree with nursing past medical, surgical, social and family history unless otherwise noted. Please see nursing chart for further information. There is no relevant family history pertinent to the presenting complaint Exam Narrative: GENERAL: Well-appearing CHEST: Speaks in full sentences. No respiratory distress. HEART: Regular rate and rhythm. Normal and equal peripheral pulses. EXTREMITIES: ESTRADA has normal strength and sensation, normal range of motion at shoulder but endorses pain with movement. Tender to left trapezius. No ecchymosis, No open wounds, or obvious deformity; alignment normal, pulse palpable and equal bilaterally, skin warm, dry, pink. Capillary refill less than 3 seconds. SKIN: Warm, dry NEURO: Alert and oriented x3. PSYCH: Normal mood and affect Course Course Emergency Course: Patient is aware of diagnosis, understands and agrees to treatment plan. Anticipatory guidance given. Patient agrees to follow-up as directed and is aware of reasons to seek care at the emergency department. Portions of this record may have been created with voice recognition software Level of Care: Express Care Visit Vital Signs Vital signs: Vital Signs Temperature 97.6 F 05/13/24 13:34 Pulse Rate 77 05/13/24 13:34 Respiratory Rate 16 05/13/24 13:34 Blood Pressure 121/69 05/13/24 13:34 Pulse Oximetry 99 05/13/24 13:34 Oxygen Delivery Room Air 05/13/24 13:34 Temperature 97.6 F 05/13/24 13:34 Pulse Rate 77 05/13/24 13:34 Respiratory Rate 16 05/13/24 13:34 Blood Pressure 121/69 05/13/24 13:34 Pulse Oximetry 99 05/13/24 13:34 Oxygen Delivery Room Air 05/13/24 13:34 Reviewed MDM - Extremity Injury (Upper) MDM Narrative Medical decision making narrative: Patient's injury and pain appear to be of musculoskeletal nature. No concerns for compartment syndrome. No concern for tendon or nerve injury. Discussed physical exam findings. Advised supportive measures and signs/symptoms to go to the ER. Pt is appropriate for outpt treatment and f/u. Differential Diagnosis Differential diagnosis: Likely dislocation of shoulder, fracture of clavicle and other ( shoulder sprain, contusion) Discharge Plan Discharge Clinical Impression: Acute pain of left shoulder Patient Disposition: Home, Self-Care Condition: Stable Instructions: Antibiotic Form, Shoulder Pain (ED) Additional Instructions: Rest. Avoid pushing, pulling, lifting or anything that worsens the symptoms Tylenol 1000mg every 8 hours as needed; You can alternate with ibuprofen Cyclobenzaprine (Flexeril) is a muscle relaxer. Take it as directed. It can cause drowsiness so do not drive or operate machinery until you know how it makes you feel. Alternate ice/heat to the site. Lidocaine or salon pas pain patch or use pain cream like icy/hot or biofreeze. Follow up with your primary care provider as needed in 1 week Go to the ER for worsening symptoms or concerns Patient Language: Amharic Prescriptions: New cyclobenzaprine 10 mg tablet 10 mg PO TID PRN (Reason: muscle spasm) Qty: 10 0RF ibuprofen 800 mg tablet 800 mg PO TID PRN (Reason: pain) Qty: 15 0RF No Action sertraline [Zoloft] 50 mg tablet 50 mg PO DAILY Qty: 90 0RF Follow-up/Referrals: PHYSICIAN,RESIDENTIAL SALES [Primary Care Provider] - Stand Alone Forms: Work/School Release IP Time of Disposition: 14:15
== END 2024-05-13 14:23 | disposition home or self-care (01) ==
PROVIDERS: Emergency Provider Nurse Practitioner Family
DX: M25.512 Pain in left shoulder (principal); Z87.891 Personal history of nicotine dependence; L40.9 Psoriasis, unspecified
CPT/HCPCS: 99213; G0463

== ENCOUNTER 2024-09-01 12:43 | Outpatient (CLI) | payer OTHER, SELFPAY ==
--- NOTE | ~2024-09-01 | US_ITS ---
EXAMINATION: US pelvic complete w TV DATE: 09/01/2024 13:24 INDICATION: R10.2 - Pelvic and perineal pain TECHNIQUE: Multiple transabdominal and endovaginal sonographic images of the pelvis were obtained. COMPARISON: 04/07/2004 FINDINGS: Uterus: 8.2 x 5.6 x 7.0 cm. Endometrial complex measures 9 mm. Nabothian cysts. Right Ovary: 3.1 x 2.1 x 1.9 cm. Vascular flow is present. No adnexal mass. Left Ovary: 2.8 x 1.5 x 2.0 cm. Vascular flow is present. No adnexal mass. There is small free fluid in the pelvis. IMPRESSION: Normal pelvic sonogram findings. Reviewed, dictated and finalized at location K.
--- OUTSIDE RECORDS SUMMARY | 2024-09-01 13:50 | XMS_ITS | Clinical Summary ---
Author Organization [facility] Building [address] Address [address] [place] [address] Care Team Providers Care Chemical Handler Name Role Phone No, Physician Primary Care Provider [phone] Allergies No known active allergies Medications No known medications Active Problems Problem Noted Date Diagnosed Date Pneumonia of right lower lobe due to infectious organism 03/30/2019 Acute bronchospasm 03/30/2019 Synovial cyst of left popliteal space 11/21/2016 Chondromalacia of left patella 11/21/2016 Surgical History Surgery Date Site/Laterality Comments CHOLECYSTECTOMY 11/2022 TUBAL LIGATION 08/2021 Medical History Medical History Date Comments Hx Other Medical Headache, migra ine Hx Other Medical 2013 Popliteal Cyst - Left Knee; Laterality: left GERD (gastroesophageal reflux disease) Depression Menstrual problem Family History Medical History Relation Name Comments Cancer Father Reyes Mckeon Diabetes Father Reyes Mckeon Cancer Maternal Grandfather Markos Mckeon Hypertension Mother Suly Mckeon Lung cancer Other 1 Family history of Cancer, lung; Diabetes Other 2 Family history of Diabetes mellitus; Heart disease Other 3 Family history of Heart disease; Hypertension Other 4 Family history of Hypertension; Relation Name Status Comments Father Reyes Mckeon Maternal Grandfather Markos Mckeon Mother Suly Mckeon Other 1 Other 2 Other 3 Other 4 Social History Tobacco Use Types Packs/Day Years Used Date Smoking Tobacco: Never Cigarettes Smokeless Tobacco: Never Tobacco Cessation:Counseling Given: Not Answered Alcohol Use Standard Drinks/Week Comments Yes 0 (1 standard drink = 0.6 oz pur e alcohol) Comments No Sex and Gender Information Value Date Recorded Sex Assigned at Not on file Legal Sex Female 12:40 AM WIRELESS ARCHITECT Gender Identity Female 10/16/2019 9:02 AM CDT Sexual Orientation Not on file Obstetrics History Last Filed Vital Signs Vital Sign Reading Time Taken Comments Blood Pressure 111/76 11/25/2019 8:52 AM CDT Pulse 72 11/25/2019 8:52 AM CDT Temperature 36.4 C (97.6 F) 11/25/2019 8:52 AM CDT Respiratory Rate 18 03/30/2019 8:34 PM CDT Oxygen Saturation 99% 03/30/2019 8:34 PM CDT Inhaled Oxygen Concentration - - Weight 88.5 kg (195 lb) 2024 9:36 AM CDT Height 167.6 cm (5' 6 ) 2024 9:36 AM CDT Body Mass Index 31.47 2024 9:36 AM CDT Plan of Treatment Health Maintenance Due Date Last Done Comments Cervical Cancer Screening 1987 Depression Screening 1987 Hepatitis C Screening 1987 Varicella Vaccines (1 of 2 - 13+ 2-dose series) 02/29/2000 Hepatitis B Screening 2005 Regular Well Visit/Exam 18-64 2005 DTaP/Tdap/Td Vaccine (2 - Td or Tdap) 06/03/2017 06/03/2007 Influenza Vaccine (#1) 2024 1, 05/03/2015, 02/25/2013 HPV Vaccines Aged Out No longer eligi ble based on patient's age to complete this topic Pneumococcal vaccine <65 Aged Out No longer eligible based on patient's age to complete this topic Insurance IDPA [facility] Care Teams Chemical Handler Relationship Specialty Start Date End Date No, Physician PCP - General 04/03/23
--- OUTSIDE RECORDS SUMMARY | 2024-09-01 13:50 | XMS_ITS | Clinical Summary ---
Author Organization [facility] Address [address] [place] [address] Phone Care Team Providers Care Chemical Sales Representative Name Role Phone Manish Traylor MD Unavailable Mandy Page MD Primary Care Provider [phone] Allergies No known active allergies Medications pantoprazole (PROTONIX) 40 MG Tablet Delayed Response Take 1 Tablet by mouth daily. 30 Tablet 3 Active Additional Information Patient taking differently:40 mg OralEVERY MORNING, Reported on 11/13/2022 ondansetron (ZOFRAN) 4 MG Tablet Take 1-2 Tablets by mouth every 8 hours as needed for Nausea - 1st line. 10 Tablet 3 Active naloxone HCl (Narcan) 4 MG/0.1ML Liquid 1 Regina by Nasal route as needed for Opioid Reversal (opioid overdose). administer for symptoms of overdose (severe sleepiness, breathing problems, not responsive). Call 911. May use additional dose to repeat 1 spray intranasally in 2-3 minutes if needed. 2 Each 3 Active Additional Information Patient not taking.Reported on 12/03/2022 HYDROcodone-sancho taminophen (NORCO) 5-325 MG TabletIndicatio ns:RUQ pain Take 1-2 Tablets by mouth every 8 hours as needed for Moderate or more severe pain. 20 Tablet 3 Active Active Problems No known active problems Family History Medical History Relation Name Comments No Known Problems Brother No Known Problems Daughter 1 No Known Problems Daughter 2 Cancer Father LUNG, PANCREATI C Diabetes Father BORDERLINE Obstructive Sleep Apnea Father Hypertension Mother Relation Name Status Comments Brother Alive Daughter 1 Alive Daughter 2 Alive Father Mother Alive Social History Tobacco Use Types Packs/Day Years Used Date Smoking Tobacco: Never Smokeless Tobacco: Never Tobacco Cessation:Counseling Given: Not Answered Alcohol Use Standard Drinks/Week Comments Not Currently 0 (1 standard drink = 0.6 oz pur e alcohol) AUDIT-C Answer Date Recorded Frequency of Alcohol Consumption Never 04/22/2019 Average Number of Drinks Not on file 019 Frequency of Binge Drinking Not on file 04/04 Comments No Sex and Gender Information Value Date Recorded Sex Assigned at Not on file Legal Sex Female 9:40 PM CDT Gender Identity Not on file Sexual Orientation Not on file Last Filed Vital Signs Vital Sign Reading Time Taken Comments Blood Pressure 125/71 03/21/2023 11:03 PM CDT Pulse 88 03/21/2023 11:03 PM CDT Temperature 36 C (96.8 F) 03/21/2023 11:03 PM CDT Respiratory Rate 18 03/21/2023 11:03 PM CDT Oxygen Saturation 99% 03/21/2023 11:03 PM CDT Inhaled Oxygen Concentration - - Weight 81.6 kg (180 lb) 03/21/2023 7:07 PM CDT Height 167.6 cm (5' 6 ) 03/21/2023 7:07 PM CDT Body Mass Index 29.05 03/21/2023 7:07 PM CDT Plan of Treatment Health Maintenance Due Date Last Done Comments Hepatitis C Virus (HCV) Screening 1987 Hepatitis B Immunization (1 of 3 - 19+ 3-dose series) 2006 Pap Smear 02/29/2008 Cervical Cancer Screening (CCS) 2017 HPV/Cotest 2017 Influenza Immunization (#1) 02/02/202402/03, 05/03/2015, 02/25/2013 SARS-COV-2 Immunization ( season) 2024 07/13/2021, 06/15/2021 Respiratory Syncytial Virus (RSV) Immunization (Adult) (1 - 1-dose 75+ series) 2062 DTaP/Tdap/Td Immunization Discontinued 2020, 06/03/2007 TdaP Immunization Completed 08/20/2020, 06/03/2007 Meningococcal Immunization (ACWY) Aged Out No longer eligible based on patient's age to complete this topic Pneumococcal Immunization Combined Aged Out No longer eligible based on patient's age to complete this topic Rotavirus Immunization Aged Out No lo nger eligible based on patient's age to complete this topic Insurance [facility] MEDICAID [place] Care Teams Chemical Sales Representative Relationship Specialty Start Date End Date Mandy Page MD [address] [place], [place] [id number] PCP - General Primary Care 11/22/22 Manish Traylor MD [address] [phone] Consulting Physician General Surgery 11/08/22
--- OUTSIDE RECORDS SUMMARY | 2024-09-01 13:50 | XMS_ITS | Referral Summary ---
Author Organization 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 Social History Tobacco Use Types Packs/Day Years Used Date Smoking Tobacco: Never Cigarettes Smokeless Tobacco: Never Tobacco Cessation:Counseling Given: Not Answered Alcohol Use Standard Drinks/Week Comments Yes 0 (1 standard drink = 0.6 oz pur e alcohol) Comments No Sex and Gender Information Value Date Recorded Sex Assigned at Not on file 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 HMO/PPO Address: [facility] [address] [place] [address] [employer] [facility] HMO/PPO Address: [facility] [id number] [place] [id number] [facility] HMO/PPO Address: [facility] [address] [place] [address] Care Teams Wood Last Maker Relationship Specialty Start Date End Date No, Physician PCP - General 04/03/23
--- OUTSIDE RECORDS SUMMARY | 2024-09-01 13:50 | XMS_ITS | Clinical Summary ---
Author Organization [facility] Address [address] [place] [address] Care Team Providers Care Bookkeeper Receptionist Name Role Phone Mandy Page MD Primary Care Provider [phone] Source Comments [facility],non-owned Affiliates and Associated Physician Practices is amultiple site organization consisting of ambulatory clinics and hospital sitesin [place], [place], [place] and [place]. This disclosure is being madepursuant to the Care Everywhere program and may not contain all information available regarding this patient. Last updated 18.[facility] Allergies No known active allergies Medications * Be aware that medications may not be up to date on this document. Alwaysverify current medications with the patient. Medication Sig Dispensed Refills Start Date End Date Status cetirizine (ZYRTEC) 10 MG tablet Take by mouth. 07/18/2016 Active fluticasone propionate (FLONASE) 50 MCG/ACT nasal sprayIndications:Non- allergic rhinitis [place] 1 spray into each nostril 2 times daily 3 bottles 5 01/09/2018 Active Hospital, Clinic, or Other Facility Administered Medication Ordered Dose Route Frequency Start Date End Date Status albuterol HFA (PROVENTIL;VENTOLIN;P ROAIR) 108 (90 BASE) MCG/ACT inhaler 2 puffIndications:Dyspn ea,Cough 2 puff IN EVERY 6 HOURS PRN 01/09/2018 Active Active Problems Problem Noted Date Diagnosed Date Small for dates affecting management of mother 1 Overview (04/15/2020): Quad screen (04/15/20): Negative for NTD, Down syndrome and Trisomy 18. Episodic headache 01/19/2018 Vocal cord dysfunction 01/19/2018 Mold exposure 01/19/2018 Non-allergic rhinitis 01/09/2018 Dyspnea 01/09/2018 Resolved Problems Problem Noted Date Diagnosed Date Resolved Date Cough 01/19/2018 02/16/2018 Family History Medical History Relation Name Comments Allergy (Severe) Neg Hx CVA Neg Hx Cancer Neg Hx Cancer - Breast Neg Hx Cancer - Skin, Melanoma Neg Hx Cancer - Skin, Non Melanoma Neg Hx Eczema Neg Hx Hemophilia Neg Hx Psoriasis Neg Hx Rashes/Skin Problems Neg Hx Social History Tobacco Use Types Packs/Day Years Used Date Smoking Tobacco: Never Smokeless Tobacco: Never Alcohol Use Standard Drinks/Week Comments No 0 (1 standard drink = 0.6 oz pur e alcohol) Sex and Gender Information Value Date Recorded Sex Assigned at Not on file Gender Identity Not on file Sexual Orientation Not on file Last Filed Vital Signs Vital Sign Reading Time Taken Comments Blood Pressure 110/84 01/09/2018 1:15 PM CDT Pulse 88 01/09/2018 1:15 PM CDT Temperature 36 C (96.8 F) 05/13/2020 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 Respiratory Rate 20 01/09/2018 1:15 PM CDT Oxygen Saturation - - Inhaled Oxygen Concentration - - Weight 88.5 kg (195 lb) 01/09/2018 1:15 PM CDT Height 167.6 cm (5' 6 ) 01/09/2018 1:15 PM CDT Body Mass Index 31.47 01/09/2018 1:15 PM CDT Plan of Treatment Health Maintenance Due Date Last Done Comments PAP SMEAR 1987 HIV SCREENING 2002 HEPATITIS C SCREENING 02/23/2005 DTAP/TDAP/TD VACCINES (1 - Tdap) 2006 HEPATITIS B VACCINE (1 of 3 - 19+ 3-dose series) 2006 COVID-19 VACCINE ( - 2023-2 5 season) 2024 INFLUENZA VACCINE (#1) 2024 05/03/2015 DEPRESSION SCREENING 06/03/2024 ZOSTER VACCINE (1 of 2) 2037 HIB VACCINE Aged Out No longer eligi ble based on patient's age to complete this topic HPV VACCINE Aged Out No longer eligi ble based on patient's age to complete this topic MENINGOCOCCAL (Group B) VACC INE SHARED DECISION-MAKING Aged Out No longer eligibl e based on patient's age to complete this topic MENINGOCOCCAL GROUPS A/C/Y/W VACCINE Aged Out No longer eligible b ased on patient's age to complete this topic PNEUMOCOCCAL VACCINE Aged Out No long er eligible based on patient's age to complete this topic Care Teams Bookkeeper Receptionist Relationship Specialty Start Date End Date Mandy Page MD [address] [place] [address] PCP - General 06/13/16
--- OUTSIDE RECORDS SUMMARY | 2024-09-01 13:50 | XMS_ITS | Encounter Summary ---
Author Organization [facility] Address [address] [place] [address] Phone Care Team Providers Care Procurement Professional Name Role Phone Mandy Page MD Primary Care Provider [phone] No, Physician Primary Care Provider [phone] Encounter Details Date Type Department Care Team (Late st Contact Info) Description 05/22/2017 Orders Only [facility] ProviderMalik MD [facility] [place] [address] Social History Tobacco Use Types Packs/Day Years Used Date Smoking Tobacco: Never Alcohol Use Standard Drinks/Week Comments Yes 0 (1 standard drink = 0.6 oz pur e alcohol) Comments Unknown Sex and Gender Information Value Date Recorded Sex Assigned at Not on file 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 Historical Provider LAB BLOOD ORDERABLES Jayna l Result documented in this encounter Visit Diagnoses Not on filedocumented in this encounter Care Teams Procurement Professional Relationship Specialty Start Date End Date Mandy Page MD [address] [place] [address] PCP - General Internal Medicine 11/01/16 04/02/23 No, Physician PCP - General 04/03/23 documented as of this encounter
--- OUTSIDE RECORDS SUMMARY | 2024-09-01 13:50 | XMS_ITS | Clinical Summary ---
Author Organization [facility] Address [address] [place] [id number] Care Team Providers Care Industrial Pharmacist Name Role Phone Unavailable Primary Care Provider Unavailabl e Social History Tobacco Use Types Packs/Day Years Used Date Smoking Tobacco: Never Assessed Comments Unknown Sex and Gender Information Value Date Recorded Sex Assigned at Not on file Legal Sex Female 6:31 PM CDT Gender Identity Not on file Sexual Orientation Not on file Plan of Treatment Health Maintenance Due Date Last Done Comments Cervical Cancer Screening Pa p Smear (Age 30 to 64) Every 3 Years 1987 Annual Physical 1990 Hepatitis C 2005 DTaP, Tdap and Td Vaccines ( 1 - Tdap) 2006 Hepatitis B Vaccines (1 of 3 - 19+ 3-dose series) 2006 Cervical Cancer Screening Pa p with HPV Testing (Age 30 to 64) Every 5 Years 2017 Cervical Cancer Screening with HPV 2017 COVID-19 Vaccine (2023-2 5 season) 2024 Influenza Adult (#1) 2024 HPV Vaccines Aged Out No longer eligi ble based on patient's age to complete this topic Meningococcal B Vaccine Aged Out No l onger eligible based on patient's age to complete this topic Meningococcal Vaccine Aged Out No kelly vitaly eligible based on patient's age to complete this topic Pneumococcal Vaccine: Pediat rics (0 to 5 Years) and At-Risk Patients (6 to 64 Years) Aged Out No longer eligible b ased on patient's age to complete this topic RSV Immunizations Under 20 Months Aged Out No longer eligible based on patient's age to complete this topic
== END 2024-09-01 12:44 | disposition home or self-care (01) ==
LOC: ANHIMG 12:44
PROVIDERS: Visit Provider Nurse Practitioner Family
DX: R10.2 Pelvic and perineal pain (principal)
CPT/HCPCS: 76830; 76856